=== PATIENT | female | born 1985 | race Caucasian/White ===

== ENCOUNTER → 2018-05-21 08:35 | Outpatient (CLI) | payer OTHER, SELFPAY ==
--- NOTE | 2018-05-21 | DI.MRI.S_ITS ---
PROCEDURE: MR HEAD/BRAIN WO/W CON INDICATIONS: NUMBNESS TECHNIQUE: Noncontrast sagittal and axial FLAIR, axial and coronal T2 fast spin echo, axial VIBE, axial gradient echo, axial diffusion and ADC through the brain. After the administration of contrast, axial and coronal VIBE with fat saturation through the brain. COMPARISON: None. FINDINGS: Image quality: Excellent. CSF spaces: Ventricles are normal in size and shape. Basal cisterns are patent. No extra-axial fluid collections. Brain: No intracranial bleeds or mass effects. Lala-white matter interface appears intact. No suspicious white matter lesions. No abnormal intracranial enhancement. Diffusion weighted images show no acute ischemic insults. Brainstem appears normal. Normal intravascular flow voids are present. Skull and face: Calvarial marrow signal is normal. Orbits appear normal. Sinuses: Sinuses and mastoids are clear. IMPRESSION: 1. No acute intracranial findings. 2. No deep or periventricular white matter changes to suggest a demyelinating process. Dictated by: Anita Giordano M.D. on 05/21/2018 at 10:06 Approved by: Anita Giordano M.D. on 05/21/2018 at 10:14
--- NOTE | 2018-05-21 | DI.MRI.S_ITS ---
PROCEDURE: MR CERVICAL SPINE WO/W CON INDICATIONS: NUMBNESS TECHNIQUE: Noncontrast sagittal T1 spin echo and T2 fast spin echo, sagittal STIR, sagittal PD fast spin echo, foraminal oblique sagittal T2 fast spin echo, axial gradient echo or T2 fast spin echo through the cervical spine. After the administration of contrast, sagittal and axial T1 spin echo with fat saturation through the cervical spine. COMPARISON: None. FINDINGS: Image quality: Mildly limited by motion artifact. Alignment and curvature: There is normal bony alignment. There is straightening of normal cervical spine curvature. Marrow: Marrow demonstrates normal overall signal. Spinal cord: Visualized spinal cord is normal in size, without white matter lesions. No suspicious intramedullary enhancement. No cerebellar tonsillar herniation. Paraspinous soft tissues: No paravertebral masses or suspicious enhancement. C2-C3: Normal appearance. C3-C4: Normal appearance. C4-C5: Normal appearance. C5-C6: Normal appearance. C6-C7: Normal appearance. C7-T1: Normal appearance. T1-T2: Slight loss of disc signal. Minimal, diffuse disc bulge. No central stenosis. No neural foraminal narrowing. No neural impingement. IMPRESSION: 1. No abnormal spinal cord signal or suspicious postcontrast enhancement. 2. No central stenosis 3. No neural foraminal narrowing 4. No neural impingement. Dictated by: Yuliana Gleason MD, PhD on 05/21/2018 at 10:52 Approved by: Yuliana Gleason MD, PhD on 05/21/2018 at 10:57
== END ==
PROVIDERS: Visit Provider Specialist
DX: R20.0 Anesthesia of skin (principal); R20.2 Paresthesia of skin
CPT/HCPCS: 70553; 72156

== ENCOUNTER → 2019-02-14 10:48 | Outpatient (CLI) | payer OTHER, MEDICAID, SELFPAY ==
[2019-02-14 10:54] LABS: RBC Urine None Seen (0-5/HPF); WBC Urine None Seen (0-5/HPF)
[2019-02-14 12:09] LABS: Hematocrit 38.5 % (36-46); Hemoglobin 12.7 g/dL (12.0-16.0); Mean Corpuscular HGB Conc 33.1 % (30-36); Mean Corpuscular Hemoglobin 29.3 PG (26-34); Mean Corpuscular Volume 88.7 fL (80-100); Platelet Count 291 X10^3/uL (150-400); Red Blood Cell Count 4.34 X10^6/uL (4.0-5.2); Red Cell Distribution Width 13.8 % (11.6-14.8); White Blood Cell Count 7.6 X10^3/uL (4.5-11.0)
[2019-02-14 12:36] LABS: Appearance Urine UA CLEAR; Bilirubin Urine UA NEGATIVE (NEGATIVE); Color Urine UA YELLOW; Glucose Urine UA NEGATIVE (Negative); Ketones Urine UA NEGATIVE (NEGATIVE); Leukocyte Esterase Urine UA NEGATIVE (NEGATIVE); Nitrite Urine UA NEGATIVE (Negative); Occult Blood Urine UA NEGATIVE (Negative); Protein Urine UA NEGATIVE (Negative); Urobilinogen Urine UA 0.2 E.U./dL (0.2)
[2019-02-14 12:47] LABS: Alanine Aminotransferase 119 IU/L (<35); Albumin 4.8 g/dL (3.5-5.0); Albumin Globulin Ratio 1.4 (1.0-2.8); Alkaline Phosphatase 117 U/L (38-126); Aspartate Aminotransferase 83 IU/L (14-36); BUN Creatinine Ratio 16.3 (6-22); Bilirubin Total 0.6 mg/dL (0.2-1.3); Blood Urea Nitrogen 13 mg/dL (7-17); Calcium 9.6 mg/dL (8.4-10.2); Carbon Dioxide 30 mmol/L (22-32); Chloride 100 mmol/L (98-107); Cholesterol 215 mg/dL (140-199); Estimated Glomerular Filt Rate > 60.0 mL/min (>60); Globulin 3.5 g/dL (1.7-4.1); Glucose 92 mg/dL (70-100); HDL Cholesterol 55 mg/dL (40-60); HEMOLYSIS < 15 (0-50); LDL Cholesterol Calculated 146 mg/dL (<100); Potassium 4.2 mmol/L (3.4-5.1); Sodium 141 mmol/L (137-145); Total Protein 8.3 g/dL (6.3-8.2); Triglycerides 69 mg/dL (35-150)
[2019-02-14 13:04] LABS: pH Urine UA 7.5 (4.5-8.0)
[2019-02-14 13:06] LABS: Bacteria Urine Many (>30); Squamous Epithelial Cell Urine 10-30 /HPF (0-5/HPF)
[2019-02-17 19:50] LABS: (tTG) Ab, IgA < 1 U/mL
== END ==
PROVIDERS: PCP Nurse Practitioner Family; Visit Provider Nurse Practitioner Family
DX: Z13.6 Encounter for screening for cardiovascular disorders (principal); R10.84 Generalized abdominal pain
CPT/HCPCS: 36415; 80053; 80061; 81001; 82784; 83516; 85027; 86255

== ENCOUNTER → 2019-03-14 11:46 | Outpatient (CLI) | payer OTHER, MEDICAID, SELFPAY ==
[2019-03-14 15:47] LABS: Hepatitis B Surface Antigen NEGATIVE s/c (NEGATIVE)
[2019-03-14 16:05] LABS: Hep C Virus Ab w/Reflex Quant NEGATIVE s/c (NEGATIVE)
[2019-03-17 08:45] LABS: ANA Screen, IFA NEGATIVE (NEGATIVE)
[2019-03-17 09:25] LABS: Hepatitis A Antibody IgM NONREACTIVE; Hepatitis Acute Panel Interp 0.01; Hepatitis B Core Antibody IgM NONREACTIVE; Hepatitis B Surface Antigen NONREACTIVE; Hepatitis C Antibody NONREACTIVE
== END ==
PROVIDERS: PCP Nurse Practitioner Family; Visit Provider Nurse Practitioner Family
DX: R74.8 Abnormal levels of other serum enzymes (principal); Z20.2 Contact with and (suspected) exposure to infections with a predominantly sexual mode of transmission; K90.41 Non-celiac gluten sensitivity
CPT/HCPCS: 36415; 80074; 81376; 81382; 86038; 86255; 86376; 86803; 87340

== ENCOUNTER → 2019-03-19 09:59 | Outpatient (CLI) | payer OTHER, MEDICAID, SELFPAY ==
--- NOTE | 2019-03-19 10:00 | DI.RAD.S_ITS ---
PROCEDURE: FL UPPER GI W AIR INDICATIONS: Esophageal spasm COMPARISON: [facility], MR, MR CERVICAL SPINE WO/W CON, 05/21/2018, 9:18. FINDINGS: KUB: Preprocedural liturgical music director film demonstrates a normal bowel gas pattern. No suspicious abdominal calcifications. Visualized solid organ contours appear normal. Bony structures appear unremarkable. Esophagus: Esophageal mucosa is normal on air-contrast views. On single-contrast views, there is normal esophageal peristalsis. No strictures, extrinsic mass effects, or diverticula. No hiatal hernia or elicited gastroesophageal reflux. There is normal transit of a calibrated barium tablet through the esophagus. Stomach: The stomach is normally distensible, with normal rugal fold thickness. No mucosal masses or ulcers. Pylorus and duodenal bulb appear normal in morphology. Duodenal folds are normal in thickness as well. IMPRESSION: Normal upper GI exam. Dictated by: Georgina Shipman M.D. on 03/19/2019 at 11:51 Approved by: Georgina Shipman M.D. on 03/19/2019 at 11:52
== END ==
PROVIDERS: PCP Nurse Practitioner Family; Visit Provider Surgery
DX: K21.9 Gastro-esophageal reflux disease without esophagitis (principal)
CPT/HCPCS: 74247

== ENCOUNTER → 2019-03-21 12:47 | Outpatient (CLI) | payer OTHER, MEDICAID, SELFPAY ==
--- NOTE | 2019-03-21 12:47 | DI.US.S_ITS ---
PROCEDURE: US ABDOMEN COMPLETE INDICATIONS: elevated liver enzymes TECHNIQUE: Real-time scanning was performed of the abdominal and retroperitoneal organs, with image documentation. COMPARISON: None. FINDINGS: Liver: Liver is normal in size and demonstrates increased echotexture. Gallbladder: Surgically absent. Biliary ducts: Intrahepatic bile ducts are non-dilated. Extrahepatic bile duct caliber measures 5.0 mm. Normal is 6-7 mm or less in diameter, or 10 mm or less post-cholecystectomy. Pancreas: Visualized portions of the pancreas are sonographically normal. Spleen: Spleen is normal in size and homogeneous in echotexture. Kidneys: Kidneys are normal in size and echotexture. Right kidney measures 9.6 cm long; left kidney measures 10.1 cm long. No hydronephrosis or nephrolithiasis. No solid masses. Aorta: Visualized aorta is normal in caliber at less than 3 cm. Iliacs: Proximal common iliac arteries are normal in caliber at less than 2.5 cm. IVC: Intrahepatic inferior vena cava is patent. Miscellaneous: No free abdominal fluid. IMPRESSION: Diffusely increased hepatic echotexture. This finding is most likely secondary to hepatic fatty infiltration although other hepatocellular disease may have a similar appearance. Recommend clinical correlation.. Dictated by: Georgina Shipman M.D. on 03/21/2019 at 14:41 Approved by: Georgina Shipman M.D. on 03/21/2019 at 14:42
== END ==
PROVIDERS: PCP Nurse Practitioner Family; Visit Provider Nurse Practitioner Family
DX: R74.8 Abnormal levels of other serum enzymes (principal); Z90.49 Acquired absence of other specified parts of digestive tract
CPT/HCPCS: 76700

== ENCOUNTER 2019-03-22 09:49 | Day surgery (SDC) | payer OTHER, MEDICAID, SELFPAY ==
[2019-03-22] VITALS (7 sets, daily range): BP systolic 96–108; BP diastolic 60–71; PULSE 65–99; RESP 12–61; TEMP 36.4–37.1; O2SAT 15–100; BMI 29.8
--- NOTE | 2019-03-22 | PATH_ITS ---
[facility] Accession Number: [id number] . 01 Material submitted: . PART A: duodenum - DUODENAL BIOPSY PART B: gastrointestinal site - STOMACH BIOPSIES PART C: esophagus - DISTAL ESOPHAGUS BIOPSIES . 02 Diagnosis: A. Duodenum, Biopsy: Duodenal mucosa with no diagnostic abnormality. Negative for active inflammation, features of sprue, dysplasia and malignancy. . B. Stomach, Biopsies: Antral and body type mucosa with mild chronic gastritis. Negative for Helicobacter by immunohistochemistry. Negative for intestinal metaplasia. Negative for dysplasia and malignancy. . C. Distal Esophagus, Biopsies: Squamocolumnar junctional mucosa with no diagnostic abnormality. Negative for intestinal metaplasia by Alcian blue stain. Negative for dysplasia and malignancy. [facility] 03/26/2019 1555 Local . 02 Electronically signed: . Adrienne Rockwell MD, Pathologist NPI- [id number] . 01 Gross description: . Part A: DUODENAL BIOPSY: Received in formalin are 2 fragment(s) of mckeon, soft tissue measuring 0.2 x 0.2 x 0.2 cm to 0.2 x 0.1 x 0.1 cm submitted entirely in 1 cassette(s) Part B: STOMACH BIOPSIES: Received in formalin are 1 fragment(s) of mckeon, soft tissue measuring 0.3 x 0.2 x 0.2 cm to 0.1 x 0.1 x 0.1 cm submitted entirely in 1 cassette(s) Part C: DISTAL ESOPHAGUS BIOPSIES: Received in formalin are multiple fragment(s) of mckeon, soft tissue measuring 0.4 x 0.3 x 0.1 cm in aggregate submitted entirely in 1 cassette(s) /[facility]J 03/22/2019 2110 Local . 02 Microscopic: . B. An immunohistochemical stain was performed to evaluate for Helicobacter organisms and is negative. The control stain showed appropriate reactivity. . C. An Alcian blue stain was performed to evaluate for intestinal metaplasia and is negative. The control stain showed appropriate reactivity. . * This test was developed and its performance characteristics determined by [facility]. It has not been cleared or approved by the U.S. Food and Drug Administration. The FDA has determined that such clearance or approval is not necessary. This test is used for clinical purposes. It should not be regarded as investigational or for research. . 02 Pathologist provided ICD-10: R13.10 . 02 CPT . 455024, 115802, 866123, 119452, [id number] Specimen Comment: A duplicate report has been generated due to demographic updates. Performed at: 01 [facility] [address] [place] [address], [place], [place] [id number] MD Eyad Fisher MD Phone: [phone] Performed at: 02 [facility] [address] [address] [place], [place] [id number] MD Adrienne Rockwell MD Phone: [phone]
--- NOTE | 2019-03-22 10:45 | PM.PREOP ---
Pre-operative Note Interval Note History & Physical reviewed/Exam performed by Physician: Yes Changes to H&P: No
[2019-03-22] MEDS: LIDOCAINE 4% SOLN 50 ML 20 ML TOP (11:04)
--- NOTE | 2019-03-22 11:04 | PM.PREOP ---
Pre-operative Note Interval Note History & Physical reviewed/Exam performed by Physician: Yes Changes to H&P: No ASA Class (for procedural sedation): I
--- NOTE | 2019-03-22 11:04 | PM.OP.ENDO ---
Operative Date/Time/Diagnoses Date of procedure: 03/22/19 Time of procedure: 11:04 Pre-op diagnosis: Colicky abdominal pain Post-op diagnosis: other (Small 2-3 cm hiatal hernia) Procedure & Clinicians Study performed: EGD with biopsies Same procedure as scheduled: Yes Indications: colicky epigastric pain Surgeon: Christine Noel Procedure Notes SCOAP/Timeout: Performed Procedure in detail: The patient was brought to the room and placed in left lateral decubitus position with all bony prominences padded. A time-out was performed and then the patient was given procedural sedation starting with 3 mg of Versed and [100] mcg of fentanyl. Vitals were monitored throughout the procedure and remained stable. Once adequately sedated the procedure was begun. The gastroscope was then passed over the tongue and into the stomach in the usual fashion, a tubular view of the esophagus was achieved and maintained as the gastroscope passed down the esophagus into the stomach. There was some bilious fluid in the stomach which was suctioned out. The stomach appeared mildly inflamed consistent with mild endoscopic gastritis. I then traversed the stomach and popped through the pylorus into the bulb of the duodenum which appeared normal. I turned into the 2nd part of the duodenum, which also appeared normal. Biopsies were taken of the duodenum, stomach, and distal esophagus. I retroflexed while in the stomach looking up in the esophagus and noted a Hill grade 3 hiatal hernia which was about 2-3 cm in length. The Z-line of the esophagus was irregular, without any significant tongues of salmon-colored mucosa coming up into the esophagus. The Z-line was at about 35 cm and the crural pinch was at about 33 cm. The patient tolerated the procedure well was transferred to the PACU in stable condition. Sedation minutes: 12 Findings: hiatal hernia Specimen(s): other (Biopsy specimens from duodenum, stomach, distal esophagus) Complications: none Post-procedure Recommendations: Other recommendation (Follow-up pending pathology results) Follow up: as needed Disposition: PACU
[2019-03-22] MEDS: MIDAZOLAM 5 MG/5 ML VIAL IV (11:05)
[2019-03-22] MEDS: fentaNYL 250 MCG/5 ML INJ IV (11:06)
== END 2019-03-22 11:54 | disposition home or self-care (01) ==
PROVIDERS: Family Provider Nurse Practitioner Family; PCP Nurse Practitioner Family; Visit Provider Surgery
PROC: 0DJ08ZZ Inspection of Upper Intestinal Tract, Via Natural or Artificial Opening Endoscopic (ICD-10-PCS; CPT 43235; principal; 2019-03-22 10:45)
DX: R13.10 Dysphagia, unspecified (principal); R10.13 Epigastric pain; R11.10 Vomiting, unspecified; K44.9 Diaphragmatic hernia without obstruction or gangrene
CPT/HCPCS: 43239; 99152; J2250; J3010

== ENCOUNTER → 2019-08-09 12:14 | Outpatient (CLI) | payer OTHER, MEDICAID, SELFPAY ==
[2019-08-10 12:36] LABS: Candida species Negative (Negative); Gardnerella vaginalis Negative (Negative); Trichomoas vaginalis Negative (Negative)
== END ==
PROVIDERS: Family Provider Nurse Practitioner Family; PCP Nurse Practitioner Family; Visit Provider Obstetrics & Gynecology
DX: N76.0 Acute vaginitis (principal); B96.89 Other specified bacterial agents as the cause of diseases classified elsewhere
CPT/HCPCS: 87480; 87510; 87660

== ENCOUNTER → 2019-08-23 10:13 | Outpatient (CLI) | payer OTHER, MEDICAID, SELFPAY ==
[2019-08-23 13:49] LABS: Urine N gonorrhoeae NOT DETECTED
[2019-08-23 13:54] LABS: Urine Chlamydia NOT DETECTED
== END ==
PROVIDERS: Family Provider Nurse Practitioner Family; PCP Nurse Practitioner Family; Visit Provider Obstetrics & Gynecology
DX: Z34.81 Encounter for supervision of other normal pregnancy, first trimester (principal); Z11.3 Encounter for screening for infections with a predominantly sexual mode of transmission; Z3A.08 8 weeks gestation of pregnancy
CPT/HCPCS: 87491; 87591

== ENCOUNTER → 2019-09-06 09:41 | Outpatient (CLI) | payer OTHER, MEDICAID, SELFPAY ==
[2019-09-06 11:32] LABS: Add Manual Diff / Slide Review NO; Basophils Absolute Auto 100 /uL (0-100); Basophils Percent Auto 0.8 % (0-2); Eosinophils Absolute Auto 100 /uL (0-450); Eosinophils Percent Auto 0.7 % (2-4); Hematocrit 35.7 % (36-46); Hemoglobin 12.1 g/dL (12.0-16.0); Lymphocytes Absolute Auto 2300 /uL (1100-4500); Lymphocytes Percent Auto 27.6 % (25-40); Mean Corpuscular HGB Conc 33.9 % (30-36); Mean Corpuscular Hemoglobin 30.2 PG (26-34); Mean Corpuscular Volume 88.8 fL (80-100); Monocytes Absolute Auto 700 /uL (0-900); Monocytes Percent Auto 8.6 % (3-14); Neutrophils Absolute Auto 5200 /uL (1500-7000); Neutrophils Percent Auto 62.3 % (50-75); Platelet Count 245 X10^3/uL (150-400); Red Blood Cell Count 4.02 X10^6/uL (4.0-5.2); Red Cell Distribution Width 13.8 % (11.6-14.8); White Blood Cell Count 8.3 X10^3/uL (4.5-11.0)
[2019-09-06 11:42] LABS: Appearance Urine UA CLEAR; Bilirubin Urine UA NEGATIVE (NEGATIVE); Color Urine UA YELLOW; Glucose Urine UA NEGATIVE (Negative); Ketones Urine UA NEGATIVE (NEGATIVE); Leukocyte Esterase Urine UA NEGATIVE (NEGATIVE); Nitrite Urine UA NEGATIVE (Negative); Occult Blood Urine UA TRACE-INTACT (Negative); Protein Urine UA NEGATIVE (Negative); Urobilinogen Urine UA 0.2 E.U./dL (0.2)
[2019-09-06 12:25] LABS: Hepatitis B Surface Antigen NEGATIVE s/c (NEGATIVE); Rubella Antibody IgG 41.6 IU/mL (>15)
[2019-09-06 12:48] LABS: HIV 1 & 2 Ab/Ag 4th Gen Combo NEGATIVE (NEGATIVE); Hep C Virus Ab w/Reflex Quant NEGATIVE s/c (NEGATIVE)
[2019-09-07 04:36] LABS: RPR Screen Non Reactive (Non Reactive)
[2019-09-07 13:19] LABS: Varicella IgG Antibody 334 index (Immune >165)
== END ==
PROVIDERS: Family Provider Nurse Practitioner Family; PCP Nurse Practitioner Family; Referring Provider Obstetrics & Gynecology; Visit Provider Obstetrics & Gynecology
DX: O09.521 Supervision of elderly multigravida, first trimester (principal); Z36.0 Encounter for antenatal screening for chromosomal anomalies; Z3A.10 10 weeks gestation of pregnancy
CPT/HCPCS: 36415; 80055; 81003; 81420; 86787; 86803; 86850; 86900; 86901; 87086; 87389

== ENCOUNTER → 2019-10-18 14:46 | Outpatient (CLI) | payer OTHER, MEDICAID, SELFPAY ==
[2019-10-21 20:05] LABS: AFP Value 44.1 ng/mL (.); Gest Age on Col Date 16.6 weeks (.); Insulin Dep Diabetes No (.); OSBR Risk 1IN 3501 (.); Results Report (.); Test Results *Screen Negative* (.)
== END ==
PROVIDERS: Family Provider Nurse Practitioner Family; PCP Nurse Practitioner Family; Referring Provider Obstetrics & Gynecology; Visit Provider Obstetrics & Gynecology
DX: Z34.82 Encounter for supervision of other normal pregnancy, second trimester (principal); Z3A.16 16 weeks gestation of pregnancy
CPT/HCPCS: 36415; 82105

== ENCOUNTER → 2019-11-11 09:19 | Outpatient (CLI) | payer OTHER, MEDICAID, SELFPAY ==
--- NOTE | 2019-11-11 09:21 | DI.US.S_ITS ---
PROCEDURE: US OB >= 14 WEEKS FETUS INDICATIONS: ANATOMY SCAN OUTSIDE/PRIOR DATING DATA: Last menstrual period (LMP): 06/24/2019. LMP-based estimated date of delivery (KYE): 03/30/2020 . First dating scan (date and location): 04/29 Estimated date of delivery (KYE) from first dating scan: 03/22/2020 . TECHNIQUE: Real-time scanning was performed of the fetus, with image documentation and biometric measurements. Endovaginal scanning: No COMPARISON: [facility], , OB <= 14 WEEKS FETUS, 08/09/2019, 11:53. [facility], , OB <= 14 WEEKS FETUS, 09/06/2019, 9:37. FINDINGS: General: A single living intrauterine gestation is present. Presentation: Vertex. Placenta: Placental position is posterior fundal , without previa. Amniotic fluid index: 12.8 cm, normal range is 5-24 cm. heart rate: 141 beats per minute. Maternal cervical canal: 3.3 cm long. Normal lower limit is 2.5 cm. biometrics: Biparietal diameter: 21 weeks 1 day Head circumference: 21 weeks 4 days Abdominal circumference: 20 weeks 6 days Femur length: 20 weeks 6 days Estimated gestational age from initial scan: 21 weeks 1 day Composite gestational age from present scan: 21 weeks 1 day Estimated weight and percentile: 380 g; 91st percentile Measurement variability for biometric dating: +/- 7 days from 14 weeks to 15 weeks 6 days gestation, +/- 10 days from 16 weeks to 21 weeks 6 days gestation, +/- 2 weeks from 22 weeks to 27 weeks 6 days gestation, +/- 3 weeks for 28 weeks gestation or later. weight reference: 4500 g or EFW >90/95% is considered macrosomia or large for gestational age. EFW <10% is small for gestational age. EFW 5% or less is considered intra-uterine growth restriction. Anatomic survey: Neuro: Ventricles are non-dilated at less than 10 mm. Cisterna magna is normal at 3-11 mm. Cerebellum is normal in size and morphology. Nuchal skin fold: Normal at less than 6 mm between 14-21 weeks gestational age. Face: Nose and lips, facial profile are normal. Spine: No evidence for spina bifida. Heart: 4-chambered heart is present, with normal ventricular outflow tracts. Diaphragm: Diaphragm is intact. Stomach: Left-sided stomach is present. Kidneys: No hydronephrosis. Normal is less than 5 mm in 2nd trimester, less than 7 mm in 3rd trimester. Cord: 3-vessel cord has orthotopic insertion. Bladder: Normal in size. Extremities: All 4 extremities identified. IMPRESSION: 1. Single living IUP redemonstrated and interval growth is normal. 2. Normal anatomic survey. Dictated by: Hiren Perez [facility] Interpreted: Shorty Rogers MD on 11/11/2019 at 10:45 Approved by: Shorty Rogers M.D. on 11/11/2019 at 11:04
== END ==
PROVIDERS: Family Provider Nurse Practitioner Family; PCP Nurse Practitioner Family; Referring Provider Obstetrics & Gynecology; Visit Provider Obstetrics & Gynecology
DX: Z34.82 Encounter for supervision of other normal pregnancy, second trimester (principal); Z3A.21 21 weeks gestation of pregnancy
CPT/HCPCS: 76811

== ENCOUNTER → 2019-12-28 11:31 | Outpatient (CLI) | payer OTHER, MEDICAID, SELFPAY ==
[2019-12-28 13:05] LABS: Hematocrit 30.1 % (36-46); Hemoglobin 9.9 g/dL (12.0-16.0)
[2019-12-28 21:51] LABS: Alanine Aminotransferase 19 IU/L (<35); Albumin 3.3 g/dL (3.5-5.0); Alkaline Phosphatase 106 U/L (38-126); Aspartate Aminotransferase 29 IU/L (14-36); BUN Creatinine Ratio 7.3 (6-22); Bilirubin Total 0.3 mg/dL (0.2-1.3); Blood Urea Nitrogen 4 mg/dL (7-17); Calcium 8.6 mg/dL (8.4-10.2); Carbon Dioxide 25 mmol/L (22-32); Chloride 104 mmol/L (98-107); Estimated Glomerular Filt Rate > 60.0 mL/min (>60); GTT (PREG) 1 Hour PP 50gm Dose 155 mg/dL (76-139); Globulin 3.4 g/dL (1.7-4.1); Glucose 155 mg/dL (70-100); HEMOLYSIS < 15 (0-50); Potassium 3.7 mmol/L (3.4-5.1); Sodium 133 mmol/L (137-145); Total Protein 6.7 g/dL (6.3-8.2)
== END ==
PROVIDERS: Family Provider Nurse Practitioner Family; PCP Nurse Practitioner Family; Referring Provider Obstetrics & Gynecology; Visit Provider Obstetrics & Gynecology
DX: Z34.82 Encounter for supervision of other normal pregnancy, second trimester (principal); R74.8 Abnormal levels of other serum enzymes; Z3A.26 26 weeks gestation of pregnancy
CPT/HCPCS: 80053; 82950; 85014; 85018

== ENCOUNTER → 2020-01-03 08:06 | Outpatient (CLI) | payer OTHER, MEDICAID, SELFPAY ==
[2020-01-03 09:07] LABS: Glucose Fasting Gestational 87 mg/dL (76-95)
[2020-01-03 10:02] LABS: Glucose 1 Hour Gest 132 mg/dL (76-180)
[2020-01-03 11:34] LABS: Glucose Tol Interp,Gestational INTERPRETATION
[2020-01-03 12:24] LABS: Glucose 2 Hour Gest 108 mg/dL (76-155)
[2020-01-03 12:24] LABS: Glucose 3 Hour Gest 97 mg/dL (76-140)
== END ==
PROVIDERS: Family Provider Nurse Practitioner Family; PCP Nurse Practitioner Family; Referring Provider Obstetrics & Gynecology; Visit Provider Obstetrics & Gynecology
DX: O99.810 Abnormal glucose complicating pregnancy (principal); Z3A.27 27 weeks gestation of pregnancy
CPT/HCPCS: 36415; 82951; 82952

== ENCOUNTER → 2020-03-12 10:04 | Outpatient (CLI) | payer OTHER, MEDICAID, SELFPAY ==
[2020-03-13 08:23] LABS: Strep Grp B PCR POS for Grp B Strep
== END ==
PROVIDERS: Family Provider Nurse Practitioner Family; PCP Nurse Practitioner Family; Visit Provider Obstetrics & Gynecology
DX: Z34.83 Encounter for supervision of other normal pregnancy, third trimester (principal); Z3A.37 37 weeks gestation of pregnancy
CPT/HCPCS: 87653

== ENCOUNTER → 2020-03-20 16:30 | Outpatient (CLI) | payer OTHER, MEDICAID, SELFPAY ==
[2020-03-20 17:03] LABS: COVID19 -Nasal RAPID Negative (Negative)
== END ==
PROVIDERS: Family Provider Nurse Practitioner Family; PCP Nurse Practitioner Family; Visit Provider Obstetrics & Gynecology
DX: Z01.812 Encounter for preprocedural laboratory examination (principal); Z20.828 Contact with and (suspected) exposure to other viral communicable diseases
CPT/HCPCS: 87635

== ENCOUNTER 2020-03-20 23:39 | Inpatient (IN) | payer OTHER, MEDICAID, SELFPAY ==
[2020-03-21 00:28] LABS: Add Manual Diff / Slide Review NO; Basophils Absolute Auto 200 /uL (0-100); Basophils Percent Auto 1.6 % (0-2); Eosinophils Absolute Auto 0 /uL (0-450); Eosinophils Percent Auto 0.4 % (2-4); Hematocrit 37.1 % (36-46); Hemoglobin 12.1 g/dL (12.0-16.0); Lymphocytes Absolute Auto 2800 /uL (1100-4500); Lymphocytes Percent Auto 21.7 % (25-40); Mean Corpuscular HGB Conc 32.7 % (30-36); Mean Corpuscular Hemoglobin 28.4 PG (26-34); Mean Corpuscular Volume 86.6 fL (80-100); Monocytes Absolute Auto 1100 /uL (0-900); Monocytes Percent Auto 8.1 % (3-14); Neutrophils Absolute Auto 8900 /uL (1500-7000); Neutrophils Percent Auto 68.2 % (50-75); Platelet Count 243 X10^3/uL (150-400); Red Blood Cell Count 4.28 X10^6/uL (4.0-5.2); Red Cell Distribution Width 18.5 % (11.6-14.8)
[2020-03-21] MEDS: PENICILLIN G POTASSIUM 5,000,000 UNIT in DEXTROSE 5% IN WATER 250 ML IV (00:30)
[2020-03-21] MEDS: LACTATED RINGERS 1,000 ML 100 ML IV (00:50)
--- NOTE | 2020-03-21 02:14 | PM.OBHP.1 ---
OB HPI Date/Time Date of admission: 03/21/20 Date Patient Seen: 03/21/20 Time Patient Seen: 02:10 History of Present Condition Chief complaint: OBSERVATION OF LABOR : 4 Para: 3 Estimated Date of Delivery: 03/30/20 Estimated Gestational Age (weeks): 38 Narrative: Yuridia Pereyra is a 34 year old @38+5 presenting in active labor. She has been theresa for several days but reports that they picked up evening, denies loss of fluid, as bloody show but no usman vaginal bleeding, good movement, no other complaints. Patient has had an otherwise uncomplicated , has a history of 3 uncomplicated vaginal deliveries though most recent was 9 years ago. No contributory medical, surgical, family, social history. History of Present care: good care Dating criteria: LMP confirmed by 1st trimester US Ultrasounds: normal 1st trimester US and normal mid trimester US Obstetrical complications: none Medical complications: none Preadmission Labs Blood type: O (+) positive -: Antibody screen: negative, GBS status: positive, HBsAG: negative, HIV: negative and RPR/VDLR: negative -: Chlamydia screen: not detected and Gonorrhea screen: not detected -: Rubella: immune and Varicella: immune PAP: Normal Cell-free DNA: low risk, normal MSAFP Urine: mixed gram + candie 1 hr GTT: 155 3 hr GTT: 1 hr (132), 2 hr (108) and 3 hr (97) Fasting blood glucose: 87 Prior (ies) History: G1: 08/13/05, , 40 wks, F, 7#1 G2: 02/13/07, , 40 weeks, 7#2, M G3: 11/29/10, , 40 weeks, 7#3, M Evaluation Evaluation Baseline heart rate: 150 Variability: Average (6-10) monitor accelerations: Present monitor decelerations: Variable (intermittent) Contraction Frequency (minutes): 4 Uterine Contraction Intensity: Strong/Firm Category of Tracing: Reactive Status: Category ll Cervical dilation (cm): 8 Cervical effacement (%): 100 station: -1 Laboratory results: Laboratory Tests 03/21/20 03/21/20 00:00 00:00 WBC 13.0 H RBC 4.28 Hgb 12.1 Hct 37.1 MCV 86.6 MCH 28.4 MCHC 32.7 RDW 18.5 H Plt Count 243 Neut % (Auto) 68.2 Lymph % (Auto) 21.7 L [place] % (Auto) 8.1 Eos % (Auto) 0.4 L Baso % (Auto) 1.6 Neut # (Auto) 8900 H Lymph # (Auto) 2800 [place] # (Auto) 1100 H Eos # (Auto) 0 Baso # (Auto) 200 H Blood Type O Positive Antibody Screen Negative Comments: EFM complicated by copious movement, patient unmedicated, +scalp stim, reassuring status in between contractions. [facility] Medical History Abdominal pain (2005) Acne (~1998) Anemia Dysphagia (2005) Elevated liver enzymes (02/2019) Gallstones (~2017) GERD (gastroesophageal reflux disease) (~2005) Gluten intolerance Heavy menstrual period (~1998) Irregular menstrual cycle (~1998) Migraines Painful menstrual periods (~1998) Surgical History Anesthesia History of cholecystectomy (~2017) [place] teeth removed (~2006) Family History Father Liver cancer Cancer Glaucoma Mother Rheumatoid arthritis Psoriasis Uterine cancer Brother Down syndrome Sister Glaucoma Sister History of cholecystectomy Grandfather Cancer Grandmother No problems noted. Grandfather Unknown whether patient has any health problems Family estrangement Grandmother Family estrangement Unknown whether patient has any health problems Social History marital status: household members: spouse and children Smoking Status: Never smoker second hand exposure: No alcohol intake: never substance use type: does not use Meds Home Medications and Allergies Home Medications Medication Instructions Recorded Confirmed Type prenat.vits,yajaira,wds-[id number]-[id number] 1 tab PO DAILY 08/20/19 01/27/20 History ferrous gluconate 324 mg (37.5 mg 324 mg PO DAILY 12/30/19 01/27/20 History iron) tablet Allergies Allergy/AdvReac Type Severity Reaction Status Date / Time No Known Drug Allergies Allergy Verified 01/27/20 09:12 Review of Systems Constitutional Constitutional: Reports system reviewed and no additional complaints, except as documented Cardiovascular Cardiovascular: Reports system reviewed and no additional complaints, except as documented Respiratory Respiratory: Reports system reviewed and no additional complaints, except as documented Gastrointestinal Gastrointestinal: Reports system reviewed and no additional complaints, except as documented Genitourinary Genitourinary: Reports as per HPI Neurologic Neurologic: Reports system reviewed and no additional complaints, except as documented Exam Vital Signs (past 8 hours): 105/59, HR 70, afebrile Const General: cooperative, healthy appearing and comfortable GI Palpation: soft and No tender External Female Exam: normal external appearance Presentation: vertex Estimated Weight (lbs): 7 Amniotic Fluid: clear Other: SROM, clear fluid Extrem General: normal to inspection Objective Labs Result Diagrams: 03/21/20 00:00 Labs: Laboratory Results - last 24 hr 03/21/20 03/21/20 00:00 00:00 WBC 13.0 H RBC 4.28 Hgb 12.1 Hct 37.1 MCV 86.6 MCH 28.4 MCHC 32.7 RDW 18.5 H Plt Count 243 Neut % (Auto) 68.2 Lymph % (Auto) 21.7 L [place] % (Auto) 8.1 Eos % (Auto) 0.4 L Baso % (Auto) 1.6 Neut # (Auto) 8900 H Lymph # (Auto) 2800 [place] # (Auto) 1100 H Eos # (Auto) 0 Baso # (Auto) 200 H Blood Type O Positive Antibody Screen Negative Assessment and Plan Assessment and Plan Assessment and Plan narrative: This patient presents in active labor and is making rapid cervical change. Administered PCN on arrival due to GBS+, now SROM for clear fluid, anticipate .
--- NOTE | 2020-03-21 03:37 | PM.OBPRVD ---
Labor & Delivery Delivery date: 03/21/20 Intrapartal events: Acceleration and Deceleration Cervical ripening method: none Induction method: none Delivery monitor: external FHT and external uterine Route of delivery: L&D Laceration Description: None Estimated blood loss (mL): 100 Anesthesia type: None Narrative: This patient presented in active labor and progressed spontaneously. A forebag was ruptured spontaneously at 9cm for blood tinged fluid, and the patient delivered in a 1 contraction second stage shortly thereafter. There was no nuchal cord, and the shoulders delivered with ease. The patient received one dose of PCN on arrival for GBS ppx, though progressed rapidly and 4 hours did not elapse. There was no perineal or labial laceration, and the placenta delivered spontaneously shortly after delivery, intact with a 3 vessel cord. The patient received 30mU of pitocin in her IV fluids per usual protocol. There were no other intrapartum or immediate complications. [place] Baby Luzmaria: Infant gender: Female Presentation: vertex position: Right Occiput Anterior Placenta delivery description: Spontaneous (intact) cord vessel description: 3 Vessels score (1 min): 9 score (5 min): 9 Narrative: weight 8#5 Plan for aftercare: Routine care
[2020-03-21 03:53] VITALS: BP 105/59
[2020-03-21] MEDS: KETOROLAC 30 MG/ML VIAL IV (04:06)
[2020-03-21] MEDS: OXYTOCIN PREMIX 30 UNIT/500 ML PLAST..BAG IV (04:07)
[2020-03-21] MEDS: IBUPROFEN 600 MG TABLET PO ×3 (10:34→21:59)
--- NOTE | 2020-03-22 09:54 | PM.OBDS.1 ---
Discharge Providers Provider Date of admission: 03/20/20 23:39 Discharge Date: 03/22/20 Primary care physician: CASS Acosta Consults: 03/22/20 03:39 Consult to [employer] Machine Operator Routine Comment: Discharge provider: Brittny García MD Summary Hospital Course Date Patient Seen: 03/22/20 Time Patient Seen: 09:54 Procedures: Hospital Course: This patient presented in active labor, and after progressing rapidly through the active phase of labor, was delivered of a healthy baby girl, Apgars 9 and 9, weight 8 lb 5 oz. There was no perineal laceration the placenta delivered intact spontaneously shortly thereafter. The patient's course was uncomplicated and she was discharged on day 1 with routine precautions. Peripartum Data Infant Delivery Method: Natural Vaginal Laceration Description: None Procedures: complications: none Dexter 1: Gender: Female Disposition of : home Status at Discharge Cognitive/behavioral status at discharge: oriented Functional status at discharge: independent ambulation Overall status at discharge: patient is progressing back to baseline Time Spent with Patient Time attestation: Total time spent providing and/or coordinating discharge services: Time spent: Less than 30 minutes Objective Labs Result Diagrams: 03/21/20 00:00 Exam Vital Signs (past 8 hours): 111/73. hr 54 Narrative Exam Narrative: Patient resting in bed with baby, ambulating, tolerating p.o., passing flatus, voiding, mild to moderate lochia. Good pain control, some sore tail bone. Const General: cooperative, healthy appearing and comfortable Resp Effort & Inspection: normal respiratory effort Auscultation: clear to auscultation bilaterally Cardio Rate: regular rate Rhythm: regular rhythm GI Palpation: soft and No tender Other: Fundus firm, @ u External Female Exam: normal external appearance Skin General: no rashes or lesions noted Discharge Plan Discharge Plan Patient Disposition: Home Discharge orders & Medications Prescriptions: Continued ferrous gluconate 324 mg (37.5 mg iron) tablet 324 mg PO DAILY RF: 0 prenat.vits,yajaira,[id number] Tablet 1 tab PO DAILY RF: 0 Follow up/Referrals: Duke Thornton ARNP [Primary Care Provider] - Brittny García MD [Physician] - 6 Weeks ( visit) Diet/Activity/Treatments Diet: Regular Activity: Nothing in the vagina for 6 weeks. Avoid heavy lifting for 6 weeks. If you have increased bleeding, headaches, visual changes, fevers, chills, nausea, vomiting, or any other symptoms, call or come to the emergency room. Skin/Wound/Dressing Care Report to your healthcare provider any signs of infection, such as:: chills, fever, night sweats, increased pain, unusual drainage and unusual redness Visit Report/Discharge Packet Instructions: DI for Labor and Delivery, Vaginal Discharge Data Primary Care Provider: Duke Thornton Attending Provider: Brittny García
[2020-03-22] MEDS: IBUPROFEN 600 MG TABLET PO (11:00)
[2020-03-22 11:30] VITALS: BP 112/69; PULSE 77; RESP 16; TEMP 36.2
== END 2020-03-22 11:30 | disposition home or self-care (01) | DRG 560 ==
PROVIDERS: Admitting Provider Obstetrics & Gynecology; Family Provider Nurse Practitioner Family; PCP Nurse Practitioner Family; Referring Provider Obstetrics & Gynecology; Visit Provider Obstetrics & Gynecology
DX: O99.824 Streptococcus B carrier state complicating childbirth (principal); Z01.812 Encounter for preprocedural laboratory examination; Z20.828 Contact with and (suspected) exposure to other viral communicable diseases; Z3A.38 38 weeks gestation of pregnancy; Z37.0 Single live birth; O99.02 Anemia complicating childbirth; D64.9 Anemia, unspecified
CPT/HCPCS: 36415; 59050; 59409; 85025; 86850; 86900; 86901; 87635; G0378; G0379; J1885; J2540; J2590

== ENCOUNTER → 2021-03-11 11:08 | Outpatient (CLI) | payer OTHER, MEDICAID, SELFPAY ==
--- NOTE | 2021-03-11 12:16 | DI.US.S_ITS ---
PROCEDURE: US OB >= 14 WEEKS FETUS INDICATIONS: ANATOMY OUTSIDE/PRIOR DATING DATA: Last menstrual period (LMP): October 02, 2020. LMP-based estimated date of delivery (KYE): July 09, 2021. First dating scan (date and location): [facility]; March 11, 2021. The calculations are made using the ultrasound KYE of July 08, 2021. TECHNIQUE: Real-time scanning was performed of the fetus, with image documentation and biometric measurements. COMPARISON: [facility], US, US OB >= 14 WEEKS FETUS, 03/12/2020, 10:00. FINDINGS: General: A single living intrauterine gestation is present. Presentation: Vertex. Placenta: Placental position is right fundal , without previa. Amniotic fluid index: 14.8 cm, normal range is 5-24 cm. Single deepest vertical pocket is 5 cm. heart rate: 149 beats per minute. Maternal cervical canal: 4.3 cm long. Normal lower limit is 2.5 cm. biometrics: Biparietal diameter: 5.5 cm Head circumference: 20.4 cm Abdominal circumference: 19 cm Femur length: 4.1 cm Clinically estimated gestational age: 22 weeks, 6 days Composite gestational age from present scan: 23 weeks Estimated weight and percentile: 587 g +/-87 g; 68th percentile Anatomic survey: Neuro: Ventricles are prominent, measuring 11 mm (normal is less than 10 mm). Cisterna magna is normal at 3-11 mm. Cerebellum is normal in size and morphology. Nuchal skin fold: 6.7 mm (Normal at less than 6 mm between 14-21 weeks gestational age). Face: Nose and lips, facial profile are normal. Spine: No evidence for spina bifida. Heart: 4-chambered heart is present, with normal ventricular outflow tracts. Diaphragm: Diaphragm is intact. Stomach: Left-sided stomach is present. Kidneys: No hydronephrosis. Normal is less than 5 mm in 2nd trimester, less than 7 mm in 3rd trimester. Cord: 3-vessel cord has orthotopic insertion. Bladder: Normal in size. Extremities: All 4 extremities identified. IMPRESSION: 1. Live single intrauterine gestation as detailed above. 2. Prominent bilateral lateral ventricles as detailed above. Ventriculomegaly between 10-15 mm: associated with aneuploidy, 25 fold likelihood of Down syndrome. Consider referral to tertiary care center for high-risk OB workup. 3. Prominence of the nuchal fold. Consider sonographic follow-up as warranted. We strive to produce accurate, complete, and clear reports of imaging services. To assist us in improving patient care, this report was composed using standard report templates and voice recognition software. Therefore, it may contain abnormal punctuation, insertions and/or omissions. Occasional wrong-word or sound-alike substitutions may occur. Though we review the report and make efforts to correct it, we do recommend that the report be read carefully in proper context to recognize any text inaccuracies. Dictated by: Orlin Velazquez M.D. on 03/11/2021 at 14:25 Approved by: Orlin Velazquez M.D. on 03/11/2021 at 14:42
[2021-03-11 12:55] LABS: Add Manual Diff / Slide Review NO; Basophils Absolute Auto 100 /uL (0-100); Basophils Percent Auto 0.7 % (0-2); Eosinophils Absolute Auto 0 /uL (0-450); Eosinophils Percent Auto 0.4 % (2-4); Hematocrit 33.2 % (36-46); Lymphocytes Absolute Auto 2100 /uL (1100-4500); Lymphocytes Percent Auto 23.8 % (25-40); Mean Corpuscular HGB Conc 33.2 % (30-36); Mean Corpuscular Hemoglobin 28.8 PG (26-34); Mean Corpuscular Volume 86.8 fL (80-100); Monocytes Absolute Auto 800 /uL (0-900); Monocytes Percent Auto 8.6 % (3-14); Neutrophils Absolute Auto 5800 /uL (1500-7000); Neutrophils Percent Auto 66.5 % (50-75); Platelet Count 333 X10^3/uL (150-400); Red Blood Cell Count 3.82 X10^6/uL (4.0-5.2); Red Cell Distribution Width 15.3 % (11.6-14.8); White Blood Cell Count 8.8 X10^3/uL (4.5-11.0)
[2021-03-11 13:40] LABS: Alanine Aminotransferase 20 IU/L (<35); Albumin 3.3 g/dL (3.5-5.0); Albumin Globulin Ratio 1.1 (1.0-2.8); Alkaline Phosphatase 89 U/L (38-126); Aspartate Aminotransferase 27 IU/L (14-36); Bilirubin Total 0.4 mg/dL (0.2-1.3); Bilirubin Unconjugated 0.3 mg/dL (0.0-1.1); HEMOLYSIS < 15 (0-50); Total Protein 6.3 g/dL (6.3-8.2)
[2021-03-11 14:05] LABS: Appearance Urine UA CLEAR; Bilirubin Urine UA NEGATIVE (NEGATIVE); Color Urine UA YELLOW; Glucose Urine UA NEGATIVE (Negative); Ketones Urine UA TRACE (NEGATIVE); Leukocyte Esterase Urine UA NEGATIVE (NEGATIVE); Nitrite Urine UA NEGATIVE (Negative); Occult Blood Urine UA NEGATIVE (Negative); Protein Urine UA NEGATIVE (Negative); Specific Gravity Urine UA 1.015 (1.000-1.035); Urobilinogen Urine UA 0.2 E.U./dL (0.2)
[2021-03-11 16:12] LABS: Hepatitis B Surface Antigen NEGATIVE s/c (NEGATIVE); Rubella Antibody IgG 29.7 IU/mL (>15)
[2021-03-11 16:31] LABS: HIV 1 & 2 Ab/Ag 4th Gen Combo NEGATIVE (NEGATIVE); Hep C Virus Ab w/Reflex Quant NEGATIVE s/c (NEGATIVE)
[2021-03-12 08:53] LABS: RPR Screen Non Reactive (Non Reactive); Varicella IgG Antibody 289 index (Immune >165)
== END ==
PROVIDERS: Family Provider Nurse Practitioner Family; PCP Nurse Practitioner Family; Referring Provider Obstetrics & Gynecology; Visit Provider Obstetrics & Gynecology
DX: Z34.82 Encounter for supervision of other normal pregnancy, second trimester (principal); Z3A.22 22 weeks gestation of pregnancy
CPT/HCPCS: 36415; 76811; 80055; 80076; 81003; 86787; 86803; 86850; 86900; 86901; 87086; 87389

== ENCOUNTER → 2021-03-19 09:40 | Outpatient (CLI) | payer OTHER, MEDICAID, SELFPAY | PROVIDERS: Family Provider Nurse Practitioner Family; PCP Nurse Practitioner Family; Referring Provider Obstetrics & Gynecology; Visit Provider Obstetrics & Gynecology | DX: Z36.0 Encounter for antenatal screening for chromosomal anomalies (principal) | CPT/HCPCS: 36415 ==

== ENCOUNTER → 2021-04-16 12:10 | Outpatient (CLI) | payer OTHER, MEDICAID, SELFPAY ==
[2021-04-16 14:34] LABS: Hematocrit 31.3 % (36-46); Hemoglobin 10.4 g/dL (12.0-16.0)
[2021-04-16 15:08] LABS: GTT (PREG) 1 Hour PP 50gm Dose 144 mg/dL (76-139)
== END ==
PROVIDERS: Family Provider Nurse Practitioner Family; PCP Nurse Practitioner Family; Referring Provider Obstetrics & Gynecology; Visit Provider Obstetrics & Gynecology
DX: Z34.82 Encounter for supervision of other normal pregnancy, second trimester (principal); Z3A.26 26 weeks gestation of pregnancy
CPT/HCPCS: 36415; 82950; 85014; 85018

== ENCOUNTER → 2021-04-30 09:55 | Outpatient (CLI) | payer OTHER, MEDICAID, SELFPAY ==
[2021-04-30 11:12] LABS: HEMOLYSIS < 15 (0-50); Iron 18 ug/dL (37-170)
[2021-04-30 11:13] LABS: Glucose Fasting Gestational 92 mg/dL (76-95)
[2021-04-30 11:24] LABS: Percent Iron Saturation 3 % (15-50); Total Iron Binding Capacity 522 ug/dL (265-497); Transferrin 435 mg/dL (206-381)
[2021-04-30 12:11] LABS: Glucose 1 Hour Gest 150 mg/dL (76-180)
[2021-04-30 12:34] LABS: Glucose 2 Hour Gest 126 mg/dL (76-155)
[2021-04-30 13:13] LABS: Glucose Tol Interp,Gestational INTERPRETATION
[2021-04-30 14:28] LABS: Glucose 3 Hour Gest 84 mg/dL (76-140)
== END ==
PROVIDERS: Family Provider Nurse Practitioner Family; PCP Nurse Practitioner Family; Referring Provider Obstetrics & Gynecology; Visit Provider Obstetrics & Gynecology
DX: D64.9 Anemia, unspecified (principal); O99.810 Abnormal glucose complicating pregnancy
CPT/HCPCS: 36415; 82951; 82952; 83021; 83540; 83550

== ENCOUNTER → 2021-05-06 10:55 | Outpatient (CLI) | payer OTHER, MEDICAID, SELFPAY ==
[2021-05-06 12:59] LABS: Add Manual Diff / Slide Review NO; Basophils Absolute Auto 100 /uL (0-100); Basophils Percent Auto 0.7 % (0-2); Eosinophils Absolute Auto 100 /uL (0-450); Eosinophils Percent Auto 0.8 % (2-4); Hematocrit 30.3 % (36-46); Hemoglobin 9.8 g/dL (12.0-16.0); Lymphocytes Absolute Auto 2400 /uL (1100-4500); Lymphocytes Percent Auto 21.3 % (25-40); Mean Corpuscular HGB Conc 32.3 % (30-36); Mean Corpuscular Volume 83.6 fL (80-100); Monocytes Absolute Auto 1000 /uL (0-900); Monocytes Percent Auto 8.8 % (3-14); Neutrophils Absolute Auto 7600 /uL (1500-7000); Neutrophils Percent Auto 68.4 % (50-75); Platelet Count 337 X10^3/uL (150-400); Red Blood Cell Count 3.62 X10^6/uL (4.0-5.2); Red Cell Distribution Width 15.6 % (11.6-14.8); White Blood Cell Count 11.1 X10^3/uL (4.5-11.0)
[2021-05-06 13:39] LABS: BUN Creatinine Ratio 8.9 (6-22); Blood Urea Nitrogen 5 mg/dL (7-17); Calcium 8.9 mg/dL (8.4-10.2); Carbon Dioxide 29 mmol/L (22-32); Chloride 103 mmol/L (98-107); Estimated Glomerular Filt Rate > 60.0 mL/min (>60); Glucose 80 mg/dL (70-100); HEMOLYSIS < 15 (0-50); Potassium 4.3 mmol/L (3.4-5.1); Sodium 133 mmol/L (137-145)
== END ==
PROVIDERS: Family Provider Nurse Practitioner Family; PCP Nurse Practitioner Family; Referring Provider Obstetrics & Gynecology; Visit Provider Obstetrics & Gynecology
DX: Z34.90 Encounter for supervision of normal pregnancy, unspecified, unspecified trimester (principal)
CPT/HCPCS: 36415; 80048; 85025

== ENCOUNTER 2021-05-24 20:09 | Emergency (ER) | payer OTHER, MEDICAID, SELFPAY ==
[2021-05-24 20:44] VITALS: BP 126/72; PULSE 108; RESP 16; TEMP 36.9; O2SAT 96; BMI 35.2
[2021-05-25] VITALS (11 sets, daily range): BP systolic 110–122; BP diastolic 64–65; PULSE 76–108; RESP 18; TEMP 36.8; O2SAT 94–97
--- NOTE | 2021-05-25 00:49 | PC.NURSE ---
left sided flank/rib painworse with inspiration, coughing and movment. no medications NOTE TAKER
--- NOTE | 2021-05-25 02:21 | ED_ITS ---
HPI - Back Pain/Injury <Lin Keith DO - Last Filed: 05/26/21 04:10> General Chief Complaint: Back Pain/Injury Stated Complaint: LEFT SIDE RIB PAIN Time Seen by Provider: 05/25/21 02:20 Source: patient Mode of arrival: Ambulatory Limitations: no limitations History of Present Illness HPI Narrative: This is a 35-year-old female comes in with complaint left rib pain radiating to her anterior. Patient states she has had for about a week she states become worse and more painful. She did have COVID about 2 weeks ago she had some shortness of breath, fevers and states she now has some nasal congestion. She does continue to have some cough and states she had a pretty persistent cough earlier. She was taking Tylenol but stopped about a week ago. Patient notes that movements it does seem to make worse. She is at [address] García for OB care. Patient denies any fevers. She had some shortness of breath but not worsening. She has had nausea but not active vomiting. She has had intermittent diarrhea with constipation. No black or bloody stools. No vaginal bleeding or discharge. She has had some sensation of contractions but had an NST at L&D prior to being evaluated which was reassuring. Related Data Home Medications Medication Instructions Recorded Confirmed prenat.vits,yajaira,[id number] 1 tab PO DAILY 08/20/19 05/25/21 ferrous gluconate 324 mg (37.5 mg 324 mg PO DAILY 12/30/19 05/25/21 iron) tablet Allergies Allergy/AdvReac Type Severity Reaction Status Date / Time No Known Drug Allergies Allergy Verified 05/25/21 09:56 Review of Systems <Lin Keith DO - Last Filed: 05/26/21 04:10> Review of Systems ROS Unobtainable: All systems reviewed & are unremarkable except as noted in HPI and below Patient History <Lin Keith DO - Last Filed: 05/26/21 04:10> Medical History Acne (~1998) Anemia Dysphagia (2005) Elevated liver enzymes (02/2019) Gallstones (~2017) GERD (gastroesophageal reflux disease) (~2005) Heavy menstrual period (~1998) Irregular menstrual cycle (~1998) Migraines Painful menstrual periods (~1998) Regurgitation of food Threatened Surgical History Anesthesia History of cholecystectomy (~2017) [place] teeth removed (~2006) Family History Father Liver cancer Cancer Glaucoma Mother Rheumatoid arthritis Psoriasis Uterine cancer Brother Down syndrome Sister Glaucoma Sister History of cholecystectomy Grandfather Cancer Grandmother No problems noted. Grandfather Unknown whether patient has any health problems Family estrangement Grandmother Family estrangement Unknown whether patient has any health problems Social History marital status: number of children: 4 household members: spouse and children lives independently: Yes caregiver/support person: No housing: house pets and animals: Yes (Dogs & cats: safe/ aware.) education level: high school occupational status: unemployed (SAHM.) current occupational exposures/hazards: No wil/uatsdin: Confucianism special wil needs: No seatbelt use: always do you feel safe at home: Yes Smoking Status: Never smoker second hand exposure: No alcohol intake: never substance use type: does not use during the past year weight has: remained stable well-balanced diet: about half the time (Hard to eat protein lately. ) daily servings fruits/ve-4 caffeine: Yes (1 decaf daily.) Type(s) of exercise: normal ROM and activity (Busy mom, with young children) frequency: does not exercise Smoking Status: Never smoker Exam <Lin Keith DO - Last Filed: 05/26/21 04:10> Narrative Exam Narrative: GENERAL: Alert and oriented x three, female in mild distress. HEENT: Head normocephalic, atraumatic, EOMI, pupils reactive, face symmetric, moist mucous membranes NECK: Supple, full range of motion CARDIOVASCULAR: Regular rate and rhythm without murmurs, rubs or gallops. RESPIRATORY: Breath sounds equal bilaterally, no wheezes rales or rhonchi. No t achypnea or accessory muscle use. Patient has persistent dry cough in the room. ABDOMEN: Soft, nontender. Gravid. Normoactive bowel sounds all 4 quadrants. No guarding or rebound, rigidity, no mass : No CVA tenderness BACK: No cervical, thoracic or lumbar vertebral point tenderness. Patient has some left chest wall tenderness. Patient has mildly decreased range of motion. Muscle strength is 5/5 in upper and lower extremities, sensation intact upper and lower extremities. Patient able to sit up and walk but appears uncomfortable with movement. EXTREMITIES: Normal range of motion, bilateral lower extremity edema. Neurovascularly intact NEUROLOGICAL: Cranial nerves II through XII grossly intact. Moving all extremities SKIN: Warm, dry, no petechiae, no rashes or lesions, no ecchymosis. Initial Vital Signs Initial Vital Signs: Vital Signs Temperature 98.4 F 05/24/21 20:44 Pulse Rate 108 H 05/24/21 20:44 Respiratory Rate 16 05/24/21 20:44 Blood Pressure 126/72 05/24/21 20:44 Pulse Oximetry 96 05/24/21 20:44 <Noman Lord DO - Last Filed: 05/25/21 09:37> Initial Vital Signs Initial Vital Signs: Vital Signs Temperature 98.4 F 05/24/21 20:44 Pulse Rate 108 H 05/24/21 20:44 Respiratory Rate 16 05/24/21 20:44 Blood Pressure 126/72 05/24/21 20:44 Pulse Oximetry 96 05/24/21 20:44 Course <Lin Keith, DO - Last Filed: 05/26/21 04:10> Orders Ordered: Discontinued Medications Acetaminophen (Acetaminophen 325 Mg Tablet) 975 mg PO NOW ONE Stop: 05/25/21 02:34 Last Admin: 05/25/21 03:06 Dose: 650 mg Documented by: MARCO Acetaminophen (Acetaminophen 325 Mg Tablet) 325 mg PO NOW ONE Stop: 05/25/21 03:00 Last Admin: 05/25/21 03:06 Dose: 325 mg Documented by: MARCO Sodium Chloride (Normal Saline 0.9%) 1,000 mls @ 1,000 mls/hr IV BOLUS ONE Stop: 05/25/21 03:32 Last Infusion: 05/25/21 06:26 Dose: 0 mls/hr Documented by: Admin: 05/25/21 02:50 Dose: 1,000 mls/hr Documented by: MARCO Ondansetron HCl (Ondansetron 4 Mg/2 Ml Inj) 4 mg IV NOW ONE Stop: 05/25/21 02:34 Last Admin: 05/25/21 02:51 Dose: 4 mg Documented by: MARCO Oxycodone HCl (Oxycodone Ir 5 Mg Tablet) 5 mg PO NOW ONE Stop: 05/25/21 05:27 Last Admin: 05/25/21 05:32 Dose: 5 mg Documented by: MARCO Reevaluation(s) Reevaluation #1: Recheck after Fluids, zofran and tylenol. Patient has had some improvement but not resolution of her symptoms. Heart rate has improved into the 80s and 90s. Discussed patient's LFTs are elevated plan for abdominal ultrasound. Reevaluation #2: Discussed with patient findings today, her ultrasound findings as well as low YOON an OB ultrasound. Discussed recommendations from Obstetrics. Patient lives about an hour away. If she were to be discharged she has an appointment in 3 hours and would likely not return. At this time plan is for Ob their see her in the emergency department for discharge directly to their clinic for management of her findings today. Consultations Consultation #1: Dr. Carbajal, on for aerospace engineer. Patient has left-sided rib pain which is reproducible and I suspect musculoskeletal. Vitals have normalized she had some improvement pain but her labs show elevated LFTs, no acute changes on abdominal ultrasound in low YOON on her OB ultrasound. Viral panel was sent Dr. Carbajal recommended adding bile acids and asked if we can hold the patient until seen by be either in the ED or in the office at her scheduled appointment at 8:30 a.m. today which is in [address] García. Vital Signs Vital signs: Vital Signs - 8 hr 05/25/21 05:30 05/25/21 06:00 05/25/21 06:30 Pulse Rate 87 91 H 93 H Pulse Oximetry 96 97 94 05/25/21 07:00 05/25/21 07:30 05/25/21 08:00 Pulse Rate 87 84 84 Pulse Oximetry 95 96 96 05/25/21 08:30 05/25/21 09:00 05/25/21 09:30 Pulse Rate 76 82 98 H Pulse Oximetry 96 96 95 <Noman Lord DO - Last Filed: 05/25/21 09:37> Orders Ordered: Discontinued Medications Acetaminophen (Acetaminophen 325 Mg Tablet) 975 mg PO NOW ONE Stop: 05/25/21 02:34 Last Admin: 05/25/21 03:06 Dose: 650 mg Documented by: MARCO Acetaminophen (Acetaminophen 325 Mg Tablet) 325 mg PO NOW ONE Stop: 05/25/21 03:00 Last Admin: 05/25/21 03:06 Dose: 325 mg Documented by: MARCO Sodium Chloride (Normal Saline 0.9%) 1,000 mls @ 1,000 mls/hr IV BOLUS ONE Stop: 05/25/21 03:32 Last Infusion: 05/25/21 06:26 Dose: 0 mls/hr Documented by: Admin: 05/25/21 02:50 Dose: 1,000 mls/hr Documented by: MARCO Ondansetron HCl (Ondansetron 4 Mg/2 Ml Inj) 4 mg IV NOW ONE Stop: 05/25/21 02:34 Last Admin: 05/25/21 02:51 Dose: 4 mg Documented by: MARCO Oxycodone HCl (Oxycodone Ir 5 Mg Tablet) 5 mg PO NOW ONE Stop: 05/25/21 05:27 Last Admin: 05/25/21 05:32 Dose: 5 mg Documented by: MARCO Vital Signs Vital signs: Vital Signs - 8 hr 05/25/21 05:30 05/25/21 06:00 05/25/21 06:30 Pulse Rate 87 91 H 93 H Pulse Oximetry 96 97 94 05/25/21 07:00 05/25/21 07:30 05/25/21 08:00 Pulse Rate 87 84 84 Pulse Oximetry 95 96 96 05/25/21 08:30 05/25/21 09:00 05/25/21 09:30 Pulse Rate 76 82 98 H Pulse Oximetry 96 96 95 MDM - Back Pain/Injury <Lin Keith DO - Last Filed: 05/26/21 04:10> Lab Data Result diagrams: 05/25/21 02:50 05/25/21 02:50 Labs: Lab Results 05/25/21 05/25/21 05/25/21 Range/Units 02:50 02:50 02:50 WBC 7.6 (4.5-11.0) X10^3/uL RBC 4.29 (4.0-5.2) X10^6/uL Hgb 11.7 L (12.0-16.0) g/dL Hct 35.3 L (36-46) % MCV 82.2 (80-100) fL MCH 27.3 (26-34) PG MCHC 33.2 (30-36) % RDW 17.0 H (11.6-14.8) % Plt Count 364 (150-400) X10^3/uL Neut % (Auto) Not Reportable Lymph % (Auto) Not Reportable [place] % (Auto) Not Reportable Eos % (Auto) Not Reportable Baso % (Auto) Not Reportable Lymph # (Auto) Not Reportable [place] # (Auto) Not Reportable Baso # (Auto) Not Reportable Total Counted 100 Seg Neutrophils % 46.0 (38-70) % Band Neutrophils % 1.0 L (3-7) % Lymphocytes % (Manual) 35.0 (25-45) % Atypical Lymphs % 18.0 H ( - 0) % Neutrophils # (Manual) 3572 (6869-1680) /uL RBC Morphology See below Anisocytosis 2+ H Sodium 135 L (137-145) mmol/L Potassium 3.9 (3.4-5.1) mmol/L Chloride 107 (98-107) mmol/L Carbon Dioxide 21 L (22-32) mmol/L BUN 8 (7-17) mg/dL Creatinine 0.73 (0.52-1.04) mg/dL Estimated GFR > 60.0 (>60) mL/min BUN/Creatinine Ratio 11.0 (6-22) Glucose 94 (70-100) mg/dL Calcium 8.8 (8.4-10.2) mg/dL Total Bilirubin 1.0 (0.2-1.3) mg/dL AST 446 H (14-36) IU/L ALT 226 H (<35) IU/L Alkaline Phosphatase 235 H (38-126) U/L Total Creatine Kinase 58 (30-135) U/L CK-MB (CK-2) TNP CK-MB (CK-2) Rel Index TNP Troponin I < 0.012 (0.01-0.034) ng/mL Total Protein 7.0 (6.3-8.2) g/dL Albumin 3.3 L (3.5-5.0) g/dL Globulin 3.7 (1.7-4.1) g/dL Albumin/Globulin Ratio 0.9 L (1.0-2.8) Lipase 106 (23-300) U/L U Random Total Protein (0-12) mg/dL Urine Creatinine mg/dL Protein/Creatinin Ratio GRAM/24H Hepatitis A IgM Ab (Negative) Hep Bs Antigen (Negative) Hep B Core IgM Ab (Negative) Hepatitis C Antibody (0.0-0.9) s/co ratio Hep C Ab Signal/Cutoff (.) 05/25/21 05/25/21 Range/Units 05:28 15:05 WBC (4.5-11.0) X10^3/uL RBC (4.0-5.2) X10^6/uL Hgb (12.0-16.0) g/dL Hct (36-46) % MCV (80-100) fL MCH (26-34) PG MCHC (30-36) % RDW (11.6-14.8) % Plt Count (150-400) X10^3/uL Neut % (Auto) Lymph % (Auto) [place] % (Auto) Eos % (Auto) Baso % (Auto) Lymph # (Auto) [place] # (Auto) Baso # (Auto) Total Counted Seg Neutrophils % (38-70) % Band Neutrophils % (3-7) % Lymphocytes % (Manual) (25-45) % Atypical Lymphs % ( - 0) % Neutrophils # (Manual) (0994-7753) /uL RBC Morphology Anisocytosis Sodium (137-145) mmol/L Potassium (3.4-5.1) mmol/L Chloride (98-107) mmol/L Carbon Dioxide (22-32) mmol/L BUN (7-17) mg/dL Creatinine (0.52-1.04) mg/dL Estimated GFR (>60) mL/min BUN/Creatinine Ratio (6-22) Glucose (70-100) mg/dL Calcium (8.4-10.2) mg/dL Total Bilirubin (0.2-1.3) mg/dL AST (14-36) IU/L ALT (<35) IU/L Alkaline Phosphatase (38-126) U/L Total Creatine Kinase (30-135) U/L CK-MB (CK-2) CK-MB (CK-2) Rel Index Troponin I (0.01-0.034) ng/mL Total Protein (6.3-8.2) g/dL Albumin (3.5-5.0) g/dL Globulin (1.7-4.1) g/dL Albumin/Globulin Ratio (1.0-2.8) Lipase (23-300) U/L U Random Total Protein 35 H (0-12) mg/dL Urine Creatinine 374.1 mg/dL Protein/Creatinin Ratio 0.09 GRAM/24H Hepatitis A IgM Ab Negative (Negative) Hep Bs Antigen Negative (Negative) Hep B Core IgM Ab Negative (Negative) Hepatitis C Antibody <0.1 (0.0-0.9) s/co ratio Hep C Ab Signal/Cutoff Comment (.) Imaging Data US - abdomen: Radiologist's Impression: Normal abdominal ultrasound status post cholecystectomy. Liver is normal in size and echotexture. No masses are seen. No focal tenderness over the gallbladder fossa. Common duct is normal in diameter measures 5 mm. Pancreas is normal were seen. Right kidney and left kidney appear without evidence of hydro, calculus or mass. Measuring 10.7 and 10.8 cm respectively. Spleen is normal in size and echotexture. No masses are seen. Aorta and vena cava appear normal. No free fluid or adenopathy is seen. US - OB: Radiologist's Impression: Single living intrauterine gestation at 33 weeks and 5 days. YOON is low measuring 4.3 cm. Closed cervix at 3.8 cm placenta is right bundle. No evidence of previa or abruption. ECG Data Attestation: I personally reviewed and interpreted this ECG as follows: Interpretation: Sinus rhythm rate 88 TX 132 QRS is 78 [address]TC [address] No acute ST elevation or depression. MDM Narrative Medical decision making narrative: This is a 35-year-old female who comes in with left-sided rib wall pain that is reproducible on exam and with movement. She is a little shaky she was tachycardic initially and on recheck. She had an ST which is reported to be normal and reassuring. Labs were obtained and patient was given fluids. Heart rate normalized she does have some bilateral lower extremity edema noted that her liver enzymes are elevated particular AST and ALT in the 400 range. Patient had normal LFTs on last check. She is nontender on the right without any right-sided abdominal pain. Ultrasound of the abdomen does not show any acute changes she is post cholecystectomy. Her obstetric ultrasound shows low fluid but heart rate of 135 without any other changes. Patient's EKG shows sinus rhythm without other acute changes. Patient did have reported recent COVID infection which had been improving as likely the cause of her persistent cough. X-ray was deferred as her exam is reassuring with clear lungs tachycardia resolved with mild fluid and my suspicion for PE is quite low, troponin is negative. HELLP seems unlikely given normal platelets and improving anemia on CBC. Case was discussed with her OB who would like to see patient today she already has an appointment schedule 8:30 a.m.. It is approximately 5:30 a.m. at this time. Plan to hold patient in the ED until either Ob can see her here in the emergency department or at her am appointment today. Hepatitis panel and bile acids were also included after discussion with OB. Patient signed out to Dr. Lord while awaiting OB evaluation and for monitoring. <Noman Lord, DO - Last Filed: 05/25/21 09:37> Lab Data Labs: Lab Results 05/25/21 05/25/21 05/25/21 Range/Units 02:50 02:50 02:50 WBC 7.6 (4.5-11.0) X10^3/uL RBC 4.29 (4.0-5.2) X10^6/uL Hgb 11.7 L (12.0-16.0) g/dL Hct 35.3 L (36-46) % MCV 82.2 (80-100) fL MCH 27.3 (26-34) PG MCHC 33.2 (30-36) % RDW 17.0 H (11.6-14.8) % Plt Count 364 (150-400) X10^3/uL Neut % (Auto) Not Reportable Lymph % (Auto) Not Reportable [place] % (Auto) Not Reportable Eos % (Auto) Not Reportable Baso % (Auto) Not Reportable Lymph # (Auto) Not Reportable [place] # (Auto) Not Reportable Baso # (Auto) Not Reportable Total Counted 100 Seg Neutrophils % 46.0 (38-70) % Band Neutrophils % 1.0 L (3-7) % Lymphocytes % (Manual) 35.0 (25-45) % Atypical Lymphs % 18.0 H ( - 0) % Neutrophils # (Manual) 3572 (5024-6317) /uL RBC Morphology See below Anisocytosis 2+ H Sodium 135 L (137-145) mmol/L Potassium 3.9 (3.4-5.1) mmol/L Chloride 107 (98-107) mmol/L Carbon Dioxide 21 L (22-32) mmol/L BUN 8 (7-17) mg/dL Creatinine 0.73 (0.52-1.04) mg/dL Estimated GFR > 60.0 (>60) mL/min BUN/Creatinine Ratio 11.0 (6-22) Glucose 94 (70-100) mg/dL Calcium 8.8 (8.4-10.2) mg/dL Total Bilirubin 1.0 (0.2-1.3) mg/dL AST 446 H (14-36) IU/L ALT 226 H (<35) IU/L Alkaline Phosphatase 235 H (38-126) U/L Total Creatine Kinase 58 (30-135) U/L CK-MB (CK-2) TNP CK-MB (CK-2) Rel Index TNP Troponin I < 0.012 (0.01-0.034) ng/mL Total Protein 7.0 (6.3-8.2) g/dL Albumin 3.3 L (3.5-5.0) g/dL Globulin 3.7 (1.7-4.1) g/dL Albumin/Globulin Ratio 0.9 L (1.0-2.8) Lipase 106 (23-300) U/L U Random Total Protein (0-12) mg/dL Urine Creatinine mg/dL Protein/Creatinin Ratio GRAM/24H Hepatitis A IgM Ab (Negative) Hep Bs Antigen (Negative) Hep B Core IgM Ab (Negative) Hepatitis C Antibody (0.0-0.9) s/co ratio Hep C Ab Signal/Cutoff (.) 05/25/21 05/25/21 Range/Units 05:28 15:05 WBC (4.5-11.0) X10^3/uL RBC (4.0-5.2) X10^6/uL Hgb (12.0-16.0) g/dL Hct (36-46) % MCV (80-100) fL MCH (26-34) PG MCHC (30-36) % RDW (11.6-14.8) % Plt Count (150-400) X10^3/uL Neut % (Auto) Lymph % (Auto) [place] % (Auto) Eos % (Auto) Baso % (Auto) Lymph # (Auto) [place] # (Auto) Baso # (Auto) Total Counted Seg Neutrophils % (38-70) % Band Neutrophils % (3-7) % Lymphocytes % (Manual) (25-45) % Atypical Lymphs % ( - 0) % Neutrophils # (Manual) (9909-3406) /uL RBC Morphology Anisocytosis Sodium (137-145) mmol/L Potassium (3.4-5.1) mmol/L Chloride (98-107) mmol/L Carbon Dioxide (22-32) mmol/L BUN (7-17) mg/dL Creatinine (0.52-1.04) mg/dL Estimated GFR (>60) mL/min BUN/Creatinine Ratio (6-22) Glucose (70-100) mg/dL Calcium (8.4-10.2) mg/dL Total Bilirubin (0.2-1.3) mg/dL AST (14-36) IU/L ALT (<35) IU/L Alkaline Phosphatase (38-126) U/L Total Creatine Kinase (30-135) U/L CK-MB (CK-2) CK-MB (CK-2) Rel Index Troponin I (0.01-0.034) ng/mL Total Protein (6.3-8.2) g/dL Albumin (3.5-5.0) g/dL Globulin (1.7-4.1) g/dL Albumin/Globulin Ratio (1.0-2.8) Lipase (23-300) U/L U Random Total Protein 35 H (0-12) mg/dL Urine Creatinine 374.1 mg/dL Protein/Creatinin Ratio 0.09 GRAM/24H Hepatitis A IgM Ab Negative (Negative) Hep Bs Antigen Negative (Negative) Hep B Core IgM Ab Negative (Negative) Hepatitis C Antibody <0.1 (0.0-0.9) s/co ratio Hep C Ab Signal/Cutoff Comment (.) MDM Narrative Medical decision making narrative: This is a 35-year-old female who comes in with left-sided rib wall pain that is reproducible on exam and with movement. She is a little shaky she was tachycardic initially and on recheck. She had an ST which is reported to be normal and reassuring. Labs were obtained and patient was given fluids. Heart rate normalized she does have some bilateral lower extremity edema noted that her liver enzymes are elevated particular AST and ALT in the 400 range. Patient had normal LFTs on last check. She is nontender on the right without any right- sided abdominal pain. Ultrasound of the abdomen does not show any acute changes she is post cholecystectomy. Her obstetric ultrasound shows low fluid but heart rate of 135 without any other changes. Patient's EKG shows sinus rhythm without other acute changes. Patient did have reported recent COVID infection which had been improving as likely the cause of her persistent cough. X-ray was deferred as her exam is reassuring with clear lungs tachycardia resolved with mild fluid and my suspicion for PE is quite low, troponin is negative. HELLP seems unlikely given normal platelets and improving anemia on CBC. Case was discussed with her OB who would like to see patient today she already has an appointment schedule 8:30 a.m.. It is approximately 5:30 a.m. at this time. Plan to hold patient in the ED until either Ob can see her here in the emergency department or at her am appointment today. Hepatitis panel and bile acids were also included after discussion with OB. Patient signed out to Dr. Lord while awaiting OB evaluation and for monitoring. 0700 (Pop): Patient received in sign-out from Dr. Keith. I have reviewed clinical course including labs and imaging up until this point. I have spoke with her at the bedside and performed a brief history and physical exam and have no significant additions. Ob has called request the patient be sent to their d epartment. Discharge Plan Departure Patient Disposition: Home Clinical Impression: Elevated liver enzymes, Left-sided chest pain Activity Restrictions/Additional Instructions: Go directly to Dr. García office to be seen. They will follow up your additional labs today. Prescriptions: No Action ferrous gluconate 324 mg (37.5 mg iron) tablet 324 mg PO DAILY 0RF prenat.vits,yajaira,[id number] Tablet 1 tab PO DAILY 0RF Referrals: Duke Thornton ARNP [Primary Care Provider] -
[2021-05-25] MEDS: SODIUM CHLORIDE 0.9% 1,000 ML 1000 ML IV (02:50)
[2021-05-25] MEDS: ONDANSETRON 4 MG/2 ML INJ IV (02:51)
[2021-05-25] MEDS: ACETAMINOPHEN 325 MG TABLET 975 MG PO (03:06)
[2021-05-25] MEDS: ACETAMINOPHEN 325 MG TABLET PO (03:06)
[2021-05-25 03:14] LABS: Alanine Aminotransferase 226 IU/L (<35); Albumin 3.3 g/dL (3.5-5.0); Albumin Globulin Ratio 0.9 (1.0-2.8); Alkaline Phosphatase 235 U/L (38-126); Aspartate Aminotransferase 446 IU/L (14-36); Blood Urea Nitrogen 8 mg/dL (7-17); Calcium 8.8 mg/dL (8.4-10.2); Carbon Dioxide 21 mmol/L (22-32); Chloride 107 mmol/L (98-107); Creatine Kinase 58 U/L (30-135); Estimated Glomerular Filt Rate > 60.0 mL/min (>60); Globulin 3.7 g/dL (1.7-4.1); Glucose 94 mg/dL (70-100); HEMOLYSIS < 15 (0-50); Lipase 106 U/L (23-300); Potassium 3.9 mmol/L (3.4-5.1); Sodium 135 mmol/L (137-145)
--- NOTE | 2021-05-25 03:21 | DI.US.S_ITS ---
PROCEDURE: US ABDOMEN COMPLETE INDICATIONS: LEFT SIDED PAIN, ELEVATED LFT'S, TECHNIQUE: Real-time scanning was performed of the abdominal and retroperitoneal organs, with image documentation. COMPARISON: None. FINDINGS: Liver: Liver is normal in size and homogeneous in echotexture. Gallbladder: Surgically absent. Biliary ducts: Intrahepatic bile ducts are non-dilated. Extrahepatic bile duct caliber measures 4.5 mm. Normal is 6-7 mm or less in diameter, or 10 mm or less post-cholecystectomy. Pancreas: Visualized portions of the pancreas are sonographically normal. Spleen: Spleen is normal in size and homogeneous in echotexture. Kidneys: Kidneys are normal in size and echotexture. Right kidney measures 10.7 cm long; left kidney measures 10.8 cm long. No hydronephrosis or nephrolithiasis. No solid masses. Aorta: Visualized aorta is normal in caliber at less than 3 cm. Distal segment of the abdominal aorta is obscured by bowel gas and cannot be evaluated. Iliacs: Obscured by bowel gas and cannot be evaluated. IVC: Intrahepatic inferior vena cava is patent. Miscellaneous: No free abdominal fluid. IMPRESSION: 1. Status post cholecystectomy. 2. No sonographic abnormality identified. Dictated by: Yuliana Gleason MD, PhD on 05/25/2021 at 8:06 Approved by: Yuliana Gleason MD, PhD on 05/25/2021 at 8:07
[2021-05-25 03:26] LABS: Troponin I < 0.012 ng/mL (0.01-0.034)
[2021-05-25 03:27] LABS: Hematocrit 35.3 % (36-46); Hemoglobin 11.7 g/dL (12.0-16.0); Mean Corpuscular HGB Conc 33.2 % (30-36); Mean Corpuscular Hemoglobin 27.3 PG (26-34); Mean Corpuscular Volume 82.2 fL (80-100); Platelet Count 364 X10^3/uL (150-400); Red Blood Cell Count 4.29 X10^6/uL (4.0-5.2); White Blood Cell Count 7.6 X10^3/uL (4.5-11.0)
[2021-05-25 03:30] LABS: Add Manual Diff / Slide Review YES
--- NOTE | 2021-05-25 03:58 | DI.US.S_ITS ---
PROCEDURE: US OB LIMITED INDICATIONS: LEFT SIDED PAIN OUTSIDE/PRIOR DATING DATA: Last menstrual period (LMP): October 02, 2020 LMP-based estimated date of delivery (KYE): July 09, 2021 First dating scan (date and location): March 11, 2021 Estimated date of delivery (KYE) from first dating scan: July 08, 2021 The calculations are made using the ultrasound KYE of July 08, 2021 TECHNIQUE: Real-time scanning was performed of the fetus, with image documentation. Endovaginal scanning: Performed COMPARISON: None. FINDINGS: A single living intrauterine gestation is present. Presentation: Cephalic Placenta: Placental position is right fundal without previa. Amniotic fluid index: 4.3 cm, normal range is 5-24 cm. Single deepest vertical pocket is 2.8 cm. heart rate: 135 beats per minute. Maternal cervical canal: Closed and 3.5 cm long. Normal lower limit is 2.5 cm. Estimated gestational age from initial scan: 33 weeks 5 days. IMPRESSION: 1. Single living intrauterine . 2. Low amniotic fluid index of 4.3 centimeters compatible with oligohydramnios. Recommend obstetrical consult and short-term follow-up obstetrical ultrasound in 1 week. Dictated by: Yuliana Gleason MD, PhD on 05/25/2021 at 8:11 Approved by: Yuliana Gleason MD, PhD on 05/25/2021 at 8:21
[2021-05-25] MEDS: OXYCODONE IR 5 MG TABLET PO (05:32)
[2021-05-25 05:55] LABS: Neutrophils Absolute Manual 3572 /uL (3000-5900); Total Cells Counted 100
[2021-05-25 05:56] LABS: Anisocytosis 2+
[2021-05-25 16:19] LABS: Protein (Total) Urine Random 35 mg/dL (0-12)
[2021-05-25 16:54] LABS: Creatinine Urine Random 374.1 mg/dL; Protein Creatinine Ratio Urine 0.09 GRAM/24H
[2021-05-26 03:08] LABS: HBsAg Screen Negative (Negative); Hepatitis A Antibody IgM Negative (Negative); Hepatitis B Core Antibody IgM Negative (Negative); Hepatitis C Antibody <0.1 s/co ratio (0.0-0.9)
[2021-05-26 09:09] LABS: Bile Acids 10.8 umol/L (0.0-10.0)
== END 2021-05-25 09:43 | disposition home or self-care (01) ==
PROVIDERS: Emergency Medicine; Obstetrics & Gynecology; Emergency Provider Emergency Medicine; Family Provider Nurse Practitioner Family; PCP Nurse Practitioner Family
DX: O26.893 Other specified pregnancy related conditions, third trimester (principal); O09.523 Supervision of elderly multigravida, third trimester; R74.8 Abnormal levels of other serum enzymes; R07.9 Chest pain, unspecified; R80.9 Proteinuria, unspecified; Z3A.33 33 weeks gestation of pregnancy; R07.81 Pleurodynia
CPT/HCPCS: 36415; 59025; 76700; 76815; 76817; 80053; 80074; 82239; 82550; 82570; 83690; 84156; 84484; 85007; 85025; 93005; 93010; 96361; 96374; 99284; J2405

== ENCOUNTER 2021-05-24 20:57 | Outpatient (CLI) | payer OTHER, MEDICAID, SELFPAY | END 2021-05-24 21:39 | disposition home or self-care (01) | LOC: OB 05-25 07:14 | PROVIDERS: Family Provider Nurse Practitioner Family; PCP Nurse Practitioner Family; Referring Provider Obstetrics & Gynecology; Visit Provider Obstetrics & Gynecology | DX: O26.893 Other specified pregnancy related conditions, third trimester (principal); R07.81 Pleurodynia; O09.523 Supervision of elderly multigravida, third trimester; Z3A.33 33 weeks gestation of pregnancy | CPT/HCPCS: 59025; G0378; G0379 ==

== ENCOUNTER 2021-05-26 10:40 | Outpatient (CLI) | payer OTHER, MEDICAID, SELFPAY ==
--- NOTE | 2021-05-26 | DI.US.S_ITS ---
PROCEDURE: US OB BIOPHYSICAL PROFILE INDICATIONS: LOW YOON OUTSIDE/PRIOR DATING DATA: Last menstrual period (LMP): 10/02/2020 LMP-based estimated date of delivery (KYE): 07/09/2021 First dating scan (date and location): 03/11/2021 Estimated date of delivery (KYE) from first dating scan: 07/08/2021 The calculations are made using the study generated KYE of 07/08/2021 TECHNIQUE: Real-time scanning was performed of the fetus for biophysical profile, with image documentation. Color and pulse Doppler interrogation was also performed of the umbilical artery near its insertion into the placenta. Endovaginal scanning: Not indicated COMPARISON: [facility], US OB >= 14 WEEKS FETUS, 03/11/2021, 12:51. [facility], US ABDOMEN COMPLETE, 05/25/2021, 3:47. [facility], US OB LIMITED, 05/25/2021, 4:06. [facility], US OB >= 14 WEEKS FETUS, 05/25/2021, 10:17. FINDINGS: General: A single living intrauterine gestation is present. Presentation: Vertex Placenta: Placental position is right fundal, without previa. Amniotic fluid index: 5.5 cm, normal range is 5-24 cm. Single deepest vertical pocket is 2.1 cm. heart rate: 158 beats per minute. Maternal cervical canal: Not evaluated. Estimated gestational age from initial scan: 33 weeks, 6 days Biophysical profile: Tone: 2 points. Movement: 2 points. Respiration: 2 points. Largest pocket of fluid: 2 points. IMPRESSION: 1. Single live intrauterine gestation with fetus in vertex presentation. heart rate is 158 beats per minute. 2. YOON is nearly lower limits of normal at 5.5 cm. 3. biophysical profile score is 8/8. We strive to produce accurate, complete, and clear reports of imaging services. To assist us in improving patient care, this report was composed using standard report templates and voice recognition software. Therefore, it may contain abnormal punctuation, insertions and/or omissions. Occasional wrong-word or sound-alike substitutions may occur. Though we review the report and make efforts to correct it, we do recommend that the report be read carefully in proper context to recognize any text inaccuracies. Dictated by: Shorty Rogers M.D. on 05/26/2021 at 12:07 Approved by: Shorty Rogers M.D. on 05/26/2021 at 12:12
[2021-05-26 10:47] VITALS: BP 107/60; PULSE 96; RESP 16; TEMP 37.1
[2021-05-26 11:02] LABS: Hematocrit 33.4 % (36-46); Mean Corpuscular Volume 81.8 fL (80-100); Platelet Count 367 X10^3/uL (150-400); Red Blood Cell Count 4.08 X10^6/uL (4.0-5.2); Red Cell Distribution Width 16.4 % (11.6-14.8); White Blood Cell Count 5.6 X10^3/uL (4.5-11.0)
[2021-05-26 11:09] LABS: Add Manual Diff / Slide Review YES
[2021-05-26 11:13] LABS: Alanine Aminotransferase 386 IU/L (<35); Albumin 3.2 g/dL (3.5-5.0); Albumin Globulin Ratio 0.9 (1.0-2.8); Alkaline Phosphatase 210 U/L (38-126); Aspartate Aminotransferase 622 IU/L (14-36); BUN Creatinine Ratio 7.2 (6-22); Blood Urea Nitrogen 6 mg/dL (7-17); Calcium 9.1 mg/dL (8.4-10.2); Carbon Dioxide 26 mmol/L (22-32); Chloride 108 mmol/L (98-107); Estimated Glomerular Filt Rate > 60.0 mL/min (>60); Globulin 3.6 g/dL (1.7-4.1); Glucose 105 mg/dL (70-100); HEMOLYSIS < 15 (0-50); Lactate Dehydrogenase 1085 U/L (313-618); Potassium 3.8 mmol/L (3.4-5.1); Sodium 138 mmol/L (137-145); Total Protein 6.8 g/dL (6.3-8.2); Uric Acid 7.7 mg/dL (2.5-6.2)
[2021-05-26 11:51] LABS: Neutrophils Absolute Manual 3248 /uL (3000-5900); Total Cells Counted 100
[2021-05-26 11:52] LABS: Anisocytosis 2+
== END 2021-05-26 11:18 | disposition home or self-care (01) ==
LOC: LABOR 10:57 → OB 06-01 12:41
PROVIDERS: Family Provider Nurse Practitioner Family; PCP Nurse Practitioner Family; Referring Provider Obstetrics & Gynecology; Visit Provider Obstetrics & Gynecology
DX: O09.523 Supervision of elderly multigravida, third trimester (principal); Z3A.33 33 weeks gestation of pregnancy
CPT/HCPCS: 59025; 76819; 80053; 83615; 84550; 85007; 85025; G0378; G0379

== ENCOUNTER → 2021-07-16 14:32 | Outpatient (CLI) | payer OTHER, MEDICAID, SELFPAY ==
[2021-07-16 15:29] LABS: Add Manual Diff / Slide Review NO; Basophils Absolute Auto 0 /uL (0-100); Basophils Percent Auto 0.4 % (0-2); Eosinophils Absolute Auto 100 /uL (0-450); Eosinophils Percent Auto 1.7 % (2-4); Hematocrit 36.1 % (36-46); Lymphocytes Absolute Auto 3200 /uL (1100-4500); Mean Corpuscular HGB Conc 33.1 % (30-36); Mean Corpuscular Hemoglobin 27.2 PG (26-34); Mean Corpuscular Volume 82.1 fL (80-100); Monocytes Absolute Auto 800 /uL (0-900); Neutrophils Absolute Auto 4900 /uL (1500-7000); Neutrophils Percent Auto 53.9 % (50-75); Platelet Count 358 X10^3/uL (150-400); Red Cell Distribution Width 18.4 % (11.6-14.8)
[2021-07-16 15:44] LABS: Alanine Aminotransferase 27 IU/L (<35); Albumin 4.3 g/dL (3.5-5.0); Albumin Globulin Ratio 1.1 (1.0-2.8); Alkaline Phosphatase 107 U/L (38-126); Aspartate Aminotransferase 31 IU/L (14-36); BUN Creatinine Ratio 20.3 (6-22); Bilirubin Total 0.5 mg/dL (0.2-1.3); Blood Urea Nitrogen 15 mg/dL (7-17); Calcium 8.8 mg/dL (8.4-10.2); Carbon Dioxide 29 mmol/L (22-32); Chloride 105 mmol/L (98-107); Estimated Glomerular Filt Rate > 60.0 mL/min (>60); Globulin 3.9 g/dL (1.7-4.1); Glucose 105 mg/dL (70-100); HEMOLYSIS 18 (0-50); Potassium 4.2 mmol/L (3.4-5.1); Sodium 140 mmol/L (137-145); Total Protein 8.2 g/dL (6.3-8.2)
[2021-07-16 16:35] LABS: HEMOLYSIS < 15 (0-50); Iron 70 ug/dL (37-170)
[2021-07-16 16:45] LABS: Percent Iron Saturation 19 % (15-50); Total Iron Binding Capacity 374 ug/dL (265-497); Transferrin 306 mg/dL (206-381)
== END ==
PROVIDERS: Family Provider Nurse Practitioner Family; Referring Provider Obstetrics & Gynecology; Visit Provider Obstetrics & Gynecology
DX: R74.8 Abnormal levels of other serum enzymes (principal)
CPT/HCPCS: 36415; 80053; 83540; 83550; 85025

== ENCOUNTER → 2022-06-10 08:31 | Outpatient (CLI) | payer OTHER, MEDICAID, SELFPAY ==
[2022-06-10 09:08] LABS: Add Manual Diff / Slide Review NO; Basophils Absolute Auto 100 /uL (0-100); Basophils Percent Auto 0.9 % (0-2); Eosinophils Absolute Auto 200 /uL (0-450); Eosinophils Percent Auto 1.7 % (2-4); Lymphocytes Absolute Auto 3300 /uL (1100-4500); Lymphocytes Percent Auto 34.3 % (25-40); Mean Corpuscular HGB Conc 33.2 % (30-36); Mean Corpuscular Hemoglobin 26.7 PG (26-34); Mean Corpuscular Volume 80.6 fL (80-100); Monocytes Absolute Auto 700 /uL (0-900); Monocytes Percent Auto 6.8 % (3-14); Neutrophils Absolute Auto 5500 /uL (1500-7000); Neutrophils Percent Auto 56.3 % (50-75); Platelet Count 370 X10^3/uL (150-400); Red Blood Cell Count 4.47 X10^6/uL (4.0-5.2); Red Cell Distribution Width 15.4 % (11.6-14.8); White Blood Cell Count 9.8 X10^3/uL (4.5-11.0)
[2022-06-10 09:13] LABS: Hemoglobin A1C% w Est Avg Glu 5.6 % (4.0-6.0)
[2022-06-10 09:29] LABS: Alanine Aminotransferase 17 IU/L (<35); Albumin 4.1 g/dL (3.5-5.0); Albumin Globulin Ratio 1.1 (1.0-2.8); Alkaline Phosphatase 118 U/L (38-126); Aspartate Aminotransferase 19 IU/L (14-36); BUN Creatinine Ratio 23.9 (6-22); Bilirubin Total 0.3 mg/dL (0.2-1.3); Blood Urea Nitrogen 16 mg/dL (7-17); Calcium 8.9 mg/dL (8.4-10.2); Carbon Dioxide 28 mmol/L (22-32); Chloride 103 mmol/L (98-107); Cholesterol 264 mg/dL (140-199); Estimated Glomerular Filt Rate > 60 mL/min (>60); Globulin 3.8 g/dL (1.7-4.1); Glucose 98 mg/dL (70-100); HDL Cholesterol 49 mg/dL (40-60); HEMOLYSIS < 15 (0-50); LDL Cholesterol Calculated 187 mg/dL (<100); Potassium 4.3 mmol/L (3.4-5.1); Sodium 138 mmol/L (137-145); Total Protein 7.9 g/dL (6.3-8.2); Triglycerides 141 mg/dL (35-150)
[2022-06-10 10:00] LABS: TSH w/ Reflex to FT4 1.37 uIU/mL (0.47-4.68)
[2022-06-10 15:26] LABS: Ferritin 18 ng/mL (6-137)
== END ==
PROVIDERS: Family Provider Nurse Practitioner Family; PCP Family Medicine; Referring Provider Family Medicine; Visit Provider Family Medicine
DX: M79.89 Other specified soft tissue disorders (principal); N92.6 Irregular menstruation, unspecified; R06.83 Snoring; R53.83 Other fatigue; R74.8 Abnormal levels of other serum enzymes
CPT/HCPCS: 36415; 80053; 80061; 82728; 83036; 84443; 85025

== ENCOUNTER → 2022-08-14 13:36 | Outpatient (CLI) | payer OTHER, MEDICAID, SELFPAY | PROVIDERS: Family Provider Nurse Practitioner Family; PCP Family Medicine; Visit Provider Nurse Practitioner Family | DX: R10.9 Unspecified abdominal pain (principal) | CPT/HCPCS: 81002; 81025; 87086 ==

== ENCOUNTER → 2024-01-31 15:21 | Outpatient (CLI) | payer OTHER, MEDICAID, SELFPAY ==
[2024-01-31 16:06] LABS: Add Manual Diff / Slide Review NO; Basophils Absolute Auto 100 /uL (0-100); Eosinophils Absolute Auto 100 /uL (0-450); Eosinophils Percent Auto 1.3 % (2-4); Hematocrit 33.2 % (36-46); Hemoglobin 10.7 g/dL (12.0-16.0); Lymphocytes Absolute Auto 3100 /uL (1100-4500); Lymphocytes Percent Auto 29.3 % (25-40); Mean Corpuscular HGB Conc 32.3 % (30-36); Mean Corpuscular Hemoglobin 25.6 PG (26-34); Mean Corpuscular Volume 79.1 fL (80-100); Monocytes Absolute Auto 800 /uL (0-900); Monocytes Percent Auto 7.1 % (3-14); Neutrophils Absolute Auto 6600 /uL (1500-7000); Neutrophils Percent Auto 61.3 % (50-75); Platelet Count 394 X10^3/uL (150-400); Red Cell Distribution Width 16.5 % (11.6-14.8); White Blood Cell Count 10.7 X10^3/uL (4.5-11.0)
[2024-01-31 16:45] LABS: Blood Urea Nitrogen 7 mg/dL (7-17); Carbon Dioxide 25 mmol/L (22-32); Chloride 103 mmol/L (98-107); Estimated Glomerular Filt Rate > 60 mL/min (>60); Glucose 90 mg/dL (70-100); HEMOLYSIS < 15 (0-50); Potassium 3.7 mmol/L (3.4-5.1); Sodium 136 mmol/L (137-145)
[2024-01-31 17:16] LABS: TSH w/ Reflex to FT4 0.99 uIU/mL (0.47-4.68)
== END ==
PROVIDERS: PCP Nurse Practitioner Family; Referring Provider Nurse Practitioner Family; Visit Provider Nurse Practitioner Family
DX: K76.0 Fatty (change of) liver, not elsewhere classified (principal); R74.8 Abnormal levels of other serum enzymes; D64.9 Anemia, unspecified; F32.A Depression, unspecified
CPT/HCPCS: 36415; 80048; 84443; 85025

== ENCOUNTER → 2024-02-27 16:43 | Outpatient (CLI) | payer OTHER, MEDICAID, SELFPAY ==
[2024-02-27 17:06] LABS: Hematocrit 33.6 % (36-46); Hemoglobin 10.6 g/dL (12.0-16.0); Mean Corpuscular HGB Conc 31.6 % (30-36); Platelet Count 385 X10^3/uL (150-400); Red Blood Cell Count 4.25 X10^6/uL (4.0-5.2); Red Cell Distribution Width 16.6 % (11.6-14.8)
[2024-02-27 17:07] LABS: Reticulocyte Count, Percent 1.2 % (1.1-2.6)
[2024-02-27 17:23] LABS: Neutrophils Absolute Manual 6050 /uL (3000-5900); Total Cells Counted 100
[2024-02-27 17:25] LABS: Anisocytosis 1+
[2024-02-27 17:27] LABS: HEMOLYSIS < 15 (0-50); Iron 29 ug/dL (37-170)
[2024-02-27 17:39] LABS: Percent Iron Saturation 9 % (15-50); Total Iron Binding Capacity 318 ug/dL (265-497); Transferrin 295 mg/dL (206-381)
[2024-02-27 18:06] LABS: Ferritin 8 ng/mL (6-137)
== END ==
PROVIDERS: PCP Nurse Practitioner Family; Referring Provider Nurse Practitioner Family; Visit Provider Nurse Practitioner Family
DX: D50.0 Iron deficiency anemia secondary to blood loss (chronic) (principal); K76.0 Fatty (change of) liver, not elsewhere classified; N92.0 Excessive and frequent menstruation with regular cycle; F32.A Depression, unspecified; R53.83 Other fatigue
CPT/HCPCS: 36415; 82728; 83540; 83550; 85025; 85045

== ENCOUNTER → 2024-04-02 13:05 | Outpatient (CLI) | payer OTHER, SELFPAY ==
[2024-04-02 13:49] LABS: HEMOLYSIS < 15 (0-50); Iron 24 ug/dL (37-170)
[2024-04-02 13:51] LABS: BUN Creatinine Ratio 12.2 (6-22); Blood Urea Nitrogen 11 mg/dL (7-17); Carbon Dioxide 29 mmol/L (22-32); Chloride 103 mmol/L (98-107); Estimated Glomerular Filt Rate > 60 mL/min (>60); Glucose 98 mg/dL (70-100); HEMOLYSIS < 15 (0-50); Lactate Dehydrogenase 191 U/L (120-246); Potassium 3.8 mmol/L (3.4-5.1); Sodium 138 mmol/L (137-145)
[2024-04-02 13:59] LABS: Percent Iron Saturation 8 % (15-50); Total Iron Binding Capacity 308 ug/dL (265-497); Transferrin 287 mg/dL (206-381)
[2024-04-02 14:24] LABS: Ferritin 14 ng/mL (6-137)
[2024-04-02 14:56] LABS: Folate 15.3 ng/mL (2.76-20.0); Vitamin B12 669 pg/mL (239-931)
[2024-04-02 15:17] LABS: Reticulocyte Count, Percent 0.7 % (1.1-2.6)
== END ==
LOC: LAB 13:06
PROVIDERS: PCP Nurse Practitioner Family; Referring Provider Nurse Practitioner Family; Visit Provider Nurse Practitioner Family
DX: D64.9 Anemia, unspecified (principal); N92.0 Excessive and frequent menstruation with regular cycle; K76.0 Fatty (change of) liver, not elsewhere classified; R10.13 Epigastric pain; R74.8 Abnormal levels of other serum enzymes
CPT/HCPCS: 36415; 80048; 82607; 82728; 82746; 83540; 83550; 83615; 85045

== ENCOUNTER → 2024-06-25 09:52 | Outpatient (CLI) | payer OTHER, SELFPAY ==
[2024-06-25 10:38] LABS: Add Manual Diff / Slide Review NO; Basophils Absolute Auto 100 /uL (0-100); Eosinophils Absolute Auto 200 /uL (0-450); Eosinophils Percent Auto 2.1 % (2-4); Hematocrit 32.1 % (36-46); Hemoglobin 10.4 g/dL (12.0-16.0); Lymphocytes Absolute Auto 3600 /uL (1100-4500); Mean Corpuscular HGB Conc 32.5 % (30-36); Mean Corpuscular Hemoglobin 25.2 PG (26-34); Mean Corpuscular Volume 77.5 fL (80-100); Monocytes Absolute Auto 600 /uL (0-900); Monocytes Percent Auto 7.4 % (3-14); Neutrophils Absolute Auto 4100 /uL (1500-7000); Neutrophils Percent Auto 47.5 % (50-75); Platelet Count 421 X10^3/uL (150-400); Red Blood Cell Count 4.15 X10^6/uL (4.0-5.2); Red Cell Distribution Width 16.7 % (11.6-14.8); White Blood Cell Count 8.5 X10^3/uL (4.5-11.0)
[2024-06-25 10:53] LABS: HEMOLYSIS < 15 (0-50); Iron 28 ug/dL (37-170)
[2024-06-25 11:05] LABS: Percent Iron Saturation 8 % (15-50); Total Iron Binding Capacity 353 ug/dL (265-497); Transferrin 300 mg/dL (206-381)
[2024-06-27 12:47] LABS: Ferritin 8 ng/mL (6-137)
== END ==
PROVIDERS: PCP Nurse Practitioner Family; Referring Provider Nurse Practitioner Family; Visit Provider Nurse Practitioner Family
DX: D64.9 Anemia, unspecified (principal); N92.0 Excessive and frequent menstruation with regular cycle; D50.9 Iron deficiency anemia, unspecified
CPT/HCPCS: 36415; 82274; 82668; 82728; 83540; 83550; 85025

== ENCOUNTER 2024-07-06 19:56 | Emergency (ER) | payer OTHER, SELFPAY ==
[2024-07-06 20:03] VITALS: BP 130/79; PULSE 98; RESP 18; TEMP 36.9; O2SAT 99; BMI 37.9
[2024-07-06 21:23] LABS: Influenza A - CEPHEID Flu A NEGATIVE (NEGATIVE); Influenza B - CEPHEID Flu B NEGATIVE (NEGATIVE); Respiratory Syncytial Virus Negative (Negative)
[2024-07-06 21:48] LABS: COVID-19 CEPHEID 4-PLEX PCR Negative (Negative)
--- NOTE | 2024-07-06 22:35 | ED_ITS ---
HPI - URI/Sore Throat General Chief Complaint: Upper Respiratory Symptoms Stated Complaint: laryngitis, nasal congestion Time Seen by Provider: 07/06/24 21:53 Source: patient Mode of arrival: Ambulatory History of Present Illness HPI Narrative: Otherwise healthy 38-year-old woman with 24-48 hours of upper respiratory infections now with mild laryngitis. , she has had low-grade fevers, slight cough, no nausea or vomiting. Multiple other family members with similar findings. Comes in with her daughter and is also looking for further evaluation. Related Data Previous Rx's Medication Instructions Recorded norethindrone (contraceptive) 0.35 0.35 mg PO DAILY #84 tabs 02/29/24 mg tablet (Leslie) bupropion HCl 300 mg 24 hr tablet, 300 mg PO DAILY #90 tabs 04/04/24 extended release (Wellbutrin XL) ferrous sulfate 324 mg (65 mg 324 mg PO DAILY #90 tabs 04/04/24 iron) tablet,delayed release Allergies Allergy/AdvReac Type Severity Reaction Status Date / Time No Known Drug Allergies Allergy Verified 06/27/24 10:58 Review of Systems Review of Systems Narrative: Pertinent positive and negative findings as per HPI Patient History Medical History (Updated 07/06/24 @ 22:39 by Rose Santiago MD) Depression VERNON (iron deficiency anemia) ANA MARIA (obstructive sleep apnea) Melasma (~2020) Non-alcoholic fatty liver disease AAA (abdominal aortic aneurysm) (~2017) Uterine cancer (~2013) Migraines Threatened Regurgitation of food Elevated liver enzymes (02/2019) Acne (~1998) Anemia Painful menstrual periods (~1998) Irregular menstrual cycle (~1998) Heavy menstrual period (~1998) Gallstones (~2017) GERD (gastroesophageal reflux disease) (~2005) Dysphagia (2005) Surgical History [place] teeth removed (~2006) Anesthesia History of cholecystectomy (~2017) Family History (Updated 06/20/22 @ 20:13 by Ximena Stover) Father Liver cancer Cancer Glaucoma Mother Rheumatoid arthritis Psoriasis Uterine cancer Anemia Brother Down syndrome Sister Glaucoma Sister History of cholecystectomy Grandfather Cancer Grandmother Anemia Grandfather Unknown whether patient has any health problems Family estrangement Grandmother Family estrangement Unknown whether patient has any health problems Family/Other Selective mutism Social History marital status: number of children: 4 household members: spouse and children lives independently: Yes caregiver/support person: No housing: house pets and animals: Yes (Dogs & cats: safe/ aware.) education level: high school occupational status: unemployed (SAHM.) current occupational exposures/hazards: No wil/yazidi: Gnosticism special wil needs: No seatbelt use: always do you feel safe at home: Yes Smoking Status: Never smoker second hand exposure: No alcohol intake: never substance use type: does not use during the past year weight has: remained stable well-balanced diet: about half the time (Hard to eat protein lately. ) daily servings fruits/ve-4 caffeine: Yes (1 decaf daily.) Type(s) of exercise: normal ROM and activity (Busy mom, with young children) frequency: does not exercise Smoking Status: Never smoker Exam Initial Vital Signs Initial Vital Signs: Vital Signs Temperature 98.4 F 07/06/24 20:03 Pulse Rate 98 H 07/06/24 20:03 Respiratory Rate 18 07/06/24 20:03 Blood Pressure 130/79 07/06/24 20:03 Pulse Oximetry 99 07/06/24 20:03 Oxygen Delivery Method Room Air 07/06/24 20:03 General: Alert appropriate in no acute distress HEENT: Hoarse voice, no posterior pharyngeal erythema, no cervical adenopathy Respiratory: Able to speak in full sentences, no obvious respiratory distress Skin: No obvious rashes, warm and dry Neurologic: Grossly intact no obvious asymmetries or abnormalities Psych: appropriate insight and affect, cooperative Course Orders Ordered: ED Orders 07/06/24 20:27 Covid-19 + FLU A/B + RSV - PCR Stat Vital Signs Vital signs: Vital Signs - 8 hr 07/06/24 20:03 Temperature 98.4 F Pulse Rate 98 H Respiratory Rate 18 Blood Pressure 130/79 Pulse Oximetry 99 Oxygen Delivery Method Room Air MDM - URI/Sore Throat Lab Data Labs: Lab Results 07/06/24 Range/Units 20:27 SARS-CoV-2 (PCR) Negative (Negative) Influenza A (RT-PCR) Flu a negative (NEGATIVE) Influenza B (RT-PCR) Flu b negative (NEGATIVE) RSV (PCR) Negative (Negative) MDM Narrative Medical decision making narrative: 38-year-old woman with upper respiratory symptoms most consistent with viral stephen ology. Reviewed findings and concerns. There was no evidence for strep throat, otitis media or bacterial secondary infection. Viral testing today does not show COVID, influenza or RSV. Reviewed upper respiratory infections, symptomatic and supportive treatment, no indication for antibiotics and reasons to return to the emergency department. MIPS: Apprpriate Treatment for Patients with URI [x] The patient was diagnosed with upper respiratory infection and was not prescribed or dispensed an antibiotic. [SATISFIES MIPS PERFORMANCE] Discharge Plan Departure Patient Disposition: Home Clinical Impression: Acute upper respiratory infection Instructions: DI for Viral Upper Respiratory Infection -- Adult Activity Restrictions/Additional Instructions: Thank you for coming in today You have a virus, which sounds like multiple family members also have. There was no indication of pneumonia, you are not wheezing, there was no indication for antibiotics. Most viruses are going to last for 7-10 days. You did not test positive for COVID, influenza or RSV today, there are plenty of other viruses that could be causing your symptoms. Using 400 mg of ibuprofen (2 [id number] pills) and 1 Tylenol every 6 hours can be very helpful in controlling pain. Make sure you are getting plenty of rest and drinking plenty of fluids. If you find that you are getting worse or develop any new symptoms, please feel free to return to the emergency department for further evaluation. Prescriptions: No Action bupropion HCl [Wellbutrin XL] 300 mg tablet extended release 24 hr 300 mg PO DAILY Qty: 90 2RF ferrous sulfate 324 mg (65 mg iron) tablet,delayed release (DR/EC) 324 mg PO DAILY Qty: 90 3RF norethindrone (contraceptive) [Leslie] 0.35 mg tablet 0.35 mg PO DAILY Qty: 84 3RF Rx Instructions: start day 1 of menstrual cycle, take same time daily Referrals: Darlyn Hutchins FNP-NATHALIA [Primary Care Provider] - Stand Alone Forms: Patient Portal/API/Survey
[2024-07-06 23:18] VITALS: BP 136/74; PULSE 65; RESP 18; TEMP 37; O2SAT 99
== END 2024-07-06 23:08 | disposition home or self-care (01) ==
PROVIDERS: Emergency Provider Emergency Medicine; PCP Nurse Practitioner Family
DX: J06.9 Acute upper respiratory infection, unspecified (principal)
CPT/HCPCS: 0241U; 99281; 99282

== ENCOUNTER → 2024-07-09 09:39 | Outpatient (CLI) | payer OTHER, SELFPAY ==
[2024-07-09 16:02] LABS: HEMOLYSIS < 15 (0-50); Iron 32 ug/dL (37-170)
[2024-07-09 16:12] LABS: Percent Iron Saturation 9 % (15-50); Total Iron Binding Capacity 360 ug/dL (265-497); Transferrin 298 mg/dL (206-381)
[2024-07-10 14:08] LABS: Fecal Immunochemical Test Negative (Negative)
== END ==
PROVIDERS: PCP Nurse Practitioner Family; Referring Provider Nurse Practitioner Family; Visit Provider Nurse Practitioner Family
DX: D50.0 Iron deficiency anemia secondary to blood loss (chronic) (principal); N92.0 Excessive and frequent menstruation with regular cycle
CPT/HCPCS: 36415; 82274; 82668; 83540; 83550

== ENCOUNTER → 2024-08-08 10:30 | Oncology outpatient (ONC) | payer OTHER, SELFPAY ==
[2024-08-06 10:30] VITALS: BP 135/58; PULSE 77; RESP 16; TEMP 36.9; O2SAT 98
[2024-08-06] MEDS: IRON SUCROSE 100 MG in SODIUM CHLORIDE 0.9% 100 ML 420 MG IV (10:54)
[2024-08-06 11:28] VITALS: BP 114/68; PULSE 62; RESP 16; TEMP 36.9; O2SAT 98
--- NOTE | 2024-08-08 11:16 | PC.NURSE ---
SIDE EFFECTS/IRON SUCROSE: PATIENT HERE FOR SECOND IRON INFUSION. SHE REPORTS THAT ON THE WAY HOME SHE FELT TINGLING IN HER MOUTH AND JAW ON MONDAY AFTER THE FIRST INFUSION. THIS SUBSIDED THE SAME DAY BUT YESTERDAY SHE WAS QUEASY AND NAUSEAUS WITH SLIGHT HEADACHE AND HEAVY LIMBS. THIS MORNING SHE NOTED A BROWNISH DISCOLORATION AROUND A LEFT HAND VEIN AND A HARD WHITE LUMP ABOUT 1 CM ROUND. PER PATIENT NO IV ACCESS WAS ATTEMPTED AT THIS HAND SITE. SKIN APPEARS NORMAL AT THE IV ACCESS SITE OF MONDAY IN THE LEFT ANTECUBITAL AREA. THIS INFORMATION WAS PASSED ON TO MURRAY CARBONE RN TO CONTACT PROVIDER FOR INSTRUCTIONS ON TODAY'S INFUSION.
--- NOTE | 2024-08-08 12:19 | PC.NURSE ---
SIDE EFFECTS/PROVIDER RESPONSE: Let's hold on this one and we can recheck her levels in 1 month and then if she needs more I will refer to hematology. AFM triage nurse will call the patient to inform her.
== END ==
PROVIDERS: PCP Nurse Practitioner Family; Referring Provider Nurse Practitioner Family; Visit Provider Nurse Practitioner Family
DX: D50.0 Iron deficiency anemia secondary to blood loss (chronic) (principal)
CPT/HCPCS: 96365; J1756

== ENCOUNTER → 2024-09-12 09:32 | Outpatient (CLI) | payer OTHER, SELFPAY ==
[2024-09-12 10:08] LABS: Add Manual Diff / Slide Review NO; Basophils Absolute Auto 100 /uL (0-100); Basophils Percent Auto 1.1 % (0-2); Eosinophils Absolute Auto 100 /uL (0-450); Eosinophils Percent Auto 1.1 % (2-4); Hematocrit 31.5 % (36-46); Hemoglobin 10.2 g/dL (12.0-16.0); Lymphocytes Absolute Auto 2500 /uL (1100-4500); Lymphocytes Percent Auto 27.6 % (25-40); Mean Corpuscular HGB Conc 32.3 % (30-36); Mean Corpuscular Volume 77.4 fL (80-100); Monocytes Absolute Auto 600 /uL (0-900); Monocytes Percent Auto 6.9 % (3-14); Neutrophils Absolute Auto 5700 /uL (1500-7000); Neutrophils Percent Auto 63.3 % (50-75); Platelet Count 365 X10^3/uL (150-400); Red Blood Cell Count 4.08 X10^6/uL (4.0-5.2)
[2024-09-12 10:19] LABS: HEMOLYSIS < 15 (0-50); Iron 33 ug/dL (37-170)
[2024-09-12 10:30] LABS: Percent Iron Saturation 9 % (15-50); Total Iron Binding Capacity 357 ug/dL (265-497); Transferrin 296 mg/dL (206-381)
[2024-09-12 10:56] LABS: Ferritin 13 ng/mL (6-137)
== END ==
PROVIDERS: PCP Nurse Practitioner Family; Referring Provider Nurse Practitioner Family; Visit Provider Nurse Practitioner Family
DX: D50.0 Iron deficiency anemia secondary to blood loss (chronic) (principal)
CPT/HCPCS: 36415; 82728; 83540; 83550; 85025

== ENCOUNTER → 2024-09-23 07:43 | Outpatient (CLI) | payer OTHER, SELFPAY ==
--- NOTE | 2019-09-24 08:08 | DI.ECHO.S_ITS ---
[facility] : : [id number] : : [place] : : [id number] : : Phone: [phone] Echocardiogram Report + + :Name: JACQUELINE NIETO Study Date: 09/23/2024 Height: 64 in : :Hospital ReadingLocation: Weight: 200 lb : : Gender: Female BSA: 2.0 m2 : :: 1985 Age: 38 yrs BP: 122/75 mmHg: :Reason For Study: Murmur : :Ordering Physician: SALINA, : :JUAN LUIS Performed By: Cate Cross : :Referring: JUAN LUIS DOWNING : + + Interpretation Summary The ejection fraction is estimated to be 55-60%. Diastolic parameters suggest probable normal left ventricular diastolic function and normal filling pressures. The right ventricle grossly appears normal in size with probable normal systolic function. The right ventricular systolic pressure is estimated to be at least 17 mmHg based on an estimated right atrial pressure of 3 mm Hg. There is mild pulmonic regurgitation. Procedure: A two-dimensional transthoracic echocardiogram with color flow and Doppler was performed. There is no prior echocardiogram noted for this patient. The study quality was technically adequate. The heart rate ranged between 47-54 bpm during the study. Left Ventricle: The left ventricle is normal in size and wall thickness. The ejection fraction is estimated to be 55-60%. Diastolic parameters suggest probable normal left ventricular diastolic function and normal filling pressures. Right Ventricle: The right ventricle grossly appears normal in size with probable normal systolic function. Atria: The left atrial size is normal. Right atrial size is normal. The interatrial septum grossly appears intact with no obvious evidence for an atrial septal defect. Mitral Valve: The mitral valve is normal in structure and function. There is no mitral valve stenosis. There is no mitral regurgitation noted. Aortic Valve: The aortic valve is trileaflet. The aortic valve opens well. There is mild aortic valve sclerosis. There is no aortic valve stenosis. No aortic regurgitation is present. Tricuspid Valve: The tricuspid valve leaflets are thin and pliable. There is a trace or physiologic amount of tricuspid regurgitation. The right ventricular systolic pressure is estimated to be at least 17 mmHg based on an estimated right atrial pressure of 3 mm Hg. Pulmonic Valve: The pulmonic valve is not well seen, but is grossly normal. There is mild pulmonic regurgitation. Great Vessels: The aortic root is normal size. The ascending aorta is normal in size. The aortic arch is normal in size. The IVC is of normal diameter and collapses greater than 50% with a sniff. This suggests a low right atrial pressure of 3 mm Hg. Pericardium/ Pleura There is no pericardial effusion. There is no pleural effusion. MMode/2D Measurements & Calculations LVIDd: 5.5 cm LVOT diam: 2.1 cm LVIDs: 3.8 cm Ao root diam: 3.2 cm FS: 30.9 % asc Aorta Diam: 3.1 cm EPSS: 0.92 cm Ao Arch Diam (Prox Trans): 2.6 cm IVSd: 0.75 cm LVPWd: 0.50 cm LV shah. diameter/BSA (cm/m^2): 2.8 LV sys. diameter/BSA (cm/m^2): 1.9 LA A2 area: 19.6 cm2 RA long axis: 4.6 cm LA A4 area: 25.4 cm2 RA area: 12.1 cm2 LA length (vol): 5.9 cm RA vol: 27.1 ml LA vol: 71.2 ml RA : 13.9 ml/m2 LA vol index: 36.4 ml/m2 IVC diam: 1.5 cm RVD1 (basal): 2.1 cm TAPSE: 2.3 cm Doppler Measurements & Calculations Ao V2 max: 136.0 cm/sec LVOT Max Neftali: 84.6 cm/sec Ao V2 mean: 92.5 cm/sec LV V1 max P.9 mmHg Ao max P.4 mmHg LV V1 VTI: 19.9 cm Ao mean P.9 mmHg PRETTY(I,D): 2.2 cm2 Ao V2 VTI: 31.3 cm PRETTY(V,D): 2.2 cm2 sev ratio: 0.63 PRETTY indexed to BSA (cm^2/m^2): 1.1 MV E max neftali: 95.5 cm/sec TR max neftali: 187.9 cm/sec MV A max neftali: 48.5 cm/sec TR max P.1 mmHg MV E/A: 2.0 PA V2 max: 97.2 cm/sec Med Peak E' Neftali: 10.4 cm/sec PA V2 mean: 68.9 cm/sec E/E' med: 9.2 PA mean P.1 mmHg Lat Peak E' Neftali: 14.6 cm/sec PA pr(Accel): -1.5 mmHg E/E' lat: 6.5 E/e' average: 7.8 MV dec time: 0.26 sec SV(LVOT): 69.7 ml Reading Physician:11:43 AM
== END ==
LOC: ECHO 07:44
PROVIDERS: PCP Nurse Practitioner Family; Referring Provider Nurse Practitioner Family; Visit Provider Nurse Practitioner Family
DX: I35.8 Other nonrheumatic aortic valve disorders (principal); I37.1 Nonrheumatic pulmonary valve insufficiency; R01.1 Cardiac murmur, unspecified
CPT/HCPCS: 93306

== ENCOUNTER → 2024-12-19 11:27 | Outpatient (CLI) | payer OTHER, SELFPAY ==
[2024-12-19 12:06] LABS: Add Manual Diff / Slide Review NO; Hematocrit 37.6 % (36-46); Hemoglobin 12.2 g/dL (12.0-16.0); Lymphocytes Absolute Auto 2900 /uL (1100-4500); Mean Corpuscular HGB Conc 32.4 % (30-36); Mean Corpuscular Hemoglobin 26.7 PG (26-34); Mean Corpuscular Volume 82.3 fL (80-100); Platelet Count 370 X10^3/uL (150-400)
[2024-12-19 13:08] LABS: TSH w/ Reflex to FT4 1.59 uIU/mL (0.47-4.68)
[2024-12-23 10:08] LABS: ANA Screen, IFA Negative (.)
== END ==
PROVIDERS: PCP Nurse Practitioner Family; Referring Provider Nurse Practitioner Family; Visit Provider Nurse Practitioner Family
DX: D50.0 Iron deficiency anemia secondary to blood loss (chronic) (principal); G47.33 Obstructive sleep apnea (adult) (pediatric); F32.A Depression, unspecified; R53.83 Other fatigue; M25.50 Pain in unspecified joint
CPT/HCPCS: 36415; 84443; 85025; 85651; 86038; 86140; 86200; 86430

== ENCOUNTER → 2025-01-30 09:31 | Day surgery (SDC) | payer OTHER, SELFPAY ==
[2025-01-20 13:37] VITALS: BMI 37.0
[2025-01-30] MEDS: LACTATED RINGERS 1,000 ML 42 ML IV (10:07)
[2025-01-30] MEDS: ACETAMINOPHEN 325 MG TABLET 975 MG PO (10:07)
[2025-01-30 10:10] VITALS: BP 101/66; PULSE 65; RESP 16; TEMP 36.3; O2SAT 99
--- NOTE | 2025-01-30 10:42 | PM.PREOP ---
Pre-operative Note COVID-19 COVID-19 status: Not tested Interval Note History & Physical reviewed/Exam performed by Physician: Yes Changes to H&P: No
--- NOTE | 2025-01-30 11:02 | SUR.PREOP ---
Surgery canceled after intake complete due to necessity of cardiac workup for patient; Anesthesia provider and Surgeon explaining to patient and . V/U. Instructed to contact surgeon's office after cardiac workup completed.
== END ==
PROVIDERS: PCP Nurse Practitioner Family; Referring Provider Nurse Practitioner Family; Visit Provider Obstetrics & Gynecology
DX: N92.1 Excessive and frequent menstruation with irregular cycle (principal); D64.9 Anemia, unspecified; N39.3 Stress incontinence (female) (male); Z53.09 Procedure and treatment not carried out because of other contraindication
CPT/HCPCS: 58573; 81025; J7120

== ENCOUNTER → 2025-02-05 13:40 | Outpatient (CLI) | payer OTHER, SELFPAY ==
--- NOTE | 2025-02-05 13:41 | DI.ECHO.S_ITS ---
[facility]+ [facility] : : [id number] : : [place] : : [id number] : : Phone: [phone] Echocardiogram Report + + :Name: JACQUELINE NIETO Study Date: 02/05/2025 Height: 63 in : :[facility] ReadingLocation: Weight: 210 lb : : Gender: Female BSA: 2.0 m2 : :: 1985 Age: 39 yrs BP: 131/85 mmHg: :Reason For Study: MURMUR : :Ordering Physician: SALINA, : :JUAN LUIS Performed By: Ken Wesley : :Referring: JUAN LUIS DOWNING : + + Interpretation Summary This is a limited echo for EF and murmur evaluation. Normal sinus rhythm. Normal LV size and wall thickness; normal wall motion and LV systolic function. The ejection fraction is estimated to be 55-60%. Diastolic parameters suggest probable normal left ventricular diastolic function and normal filling pressures. The right ventricle grossly appears normal in size with probable normal systolic function. Aortic sclerosis without stenosis; otherwise there are no significant valvular abnormalities. Compared to prior echo 09/23/2024 no changes have occurred. Procedure: A two-dimensional transthoracic echocardiogram with color flow and Doppler was performed in limited views only to assess EF and MURMUR. The study quality was technically good. Comparison is made with the echocardiogram of 09/23/2024. The patient was in normal sinus rhythm during the exam. Left Ventricle: The left ventricle is normal in size. There is normal left ventricular wall thickness. The ejection fraction is estimated to be 55-60%. There are no focal wall motion abnormalities. Mitral Valve: The mitral valve leaflets appear normal. There is no evidence of stenosis, fluttering, or prolapse. There is trace mitral regurgitation. Aortic Valve: The aortic valve is trileaflet. The aortic valve opens well. No aortic regurgitation is present. Tricuspid Valve: The tricuspid valve is normal in structure and function. There is trace tricuspid regurgitation. Pulmonic Valve: The pulmonic valve leaflets are thin and pliable; valve motion is normal. There is trace pulmonic regurgitation. Great Vessels: The IVC is of normal diameter and collapses greater than 50% with a sniff. This suggests a low right atrial pressure of 3 mm Hg. Pericardium/ Pleura There is no pericardial effusion. There is no pleural effusion. MMode/2D Measurements & Calculations LVIDd: 5.2 cm IVC diam: 1.9 cm LVIDs: 3.6 cm FS: 30.7 % IVSd: 0.89 cm LVPWd: 0.66 cm LV shah. diameter/BSA (cm/m^2): 2.6 LV sys. diameter/BSA (cm/m^2): 1.8 Electronically signed by: Tyra Ramos M.D. on Reading Physician:02/05/2025 11:58 PM
--- NOTE | 2025-02-05 17:01 | DI.NM.S_ITS ---
DATE OF SERVICE: 02/05/2025 EXERCISE STRESS TEST INDICATIONS: Exertional shortness of breath. CARDIAC STRESS: The patient underwent exercise stress test under the supervision of an attending staff. The patient walked on Sylvain protocol for 9 minutes, achieved maximum heart rate of 167, which was 93% of target heart rate, ANDREEA -2%, 10.1 METS of workload. Resting blood pressure 116/76 and peak blood pressure 148/84. Baseline rhythm sinus with up to 0.[address] depression in inferior leads and leads V4 to V6, likely repolarization changes. During stress no new convincing ischemic changes. Single PVCs seen. No complex arrhythmias. The patient had shortness of breath with oxygen saturation 98% on maximum exertion. The patient developed chest tightness radiating to the left shoulder at 7 minutes into the exercise got recovered in recovery. CONCLUSION: Exercise stress test did not reveal any obvious inducible ischemic changes. Baseline repolarization changes stated above. Normal hemodynamic response. Good exercise capacity. No significant arrhythmias. The patient had shortness of breath and chest tightness without any convincing ischemic changes or significant arrhythmias. Oxygen saturation was 98%. Overall low-risk exercise stress test. Correlate clinically. Yuridia Pereyra - ROOF PANEL HANGER/fn/[employer] SURVEY WORKER doc#: [id number]/job#: [id number] dd: 02/05/2025 16:44:00 dt: 02/05/2025 16:50:00 DICTATING /COPIES TO: Madhav Avila MD COPIES MNE: HEIDE;
== END ==
PROVIDERS: PCP Nurse Practitioner Family; Referring Provider Nurse Practitioner Family; Visit Provider Nurse Practitioner Family
DX: R06.09 Other forms of dyspnea (principal); R01.1 Cardiac murmur, unspecified
CPT/HCPCS: 93017; 93307

== ENCOUNTER → 2025-03-17 18:27 | Outpatient (CLI) | payer OTHER, SELFPAY ==
--- NOTE | 2025-03-17 18:29 | DI.RAD.S_ITS ---
PROCEDURE: XR CHEST 2V INDICATIONS: Cough TECHNIQUE: 2 views of the chest were acquired. COMPARISON: None. FINDINGS: Surgical changes and devices: None. Lungs and pleura: Lungs are clear. No pleural effusions or pneumothorax. Peribronchial cuffing. Mediastinum: Mediastinal contours are normal. Heart size is normal. Bones and chest wall: No suspicious bony abnormalities. Soft tissues appear unremarkable. IMPRESSION: Peribronchial cuffing, typically indicating infectious or inflammatory bronchitis. Dictated by: Amilcar Renteria M.D. on 03/18/2025 at 22:52 Approved by: Amilcar Renteria M.D. on 03/18/2025 at 22:53
== END ==
LOC: RAD 18:28
PROVIDERS: PCP Nurse Practitioner Family; Referring Provider Nurse Practitioner Family; Visit Provider Nurse Practitioner Family
DX: R05.9 Cough, unspecified (principal)
CPT/HCPCS: 71046